=== PATIENT | female | born 1980 | race American Indian/Alaskan Native ===

== ENCOUNTER 2017-05-30 09:09 | Emergency (ER) | payer SELFPAY ==
[2017-05-30 09:51] LABS: Basophils % (Auto) 0.6 % (0.0-1.8); Eosinophils % (Auto) 1.9 % (0.0-4.3); Hematocrit 37.7 % (30.3-42.9); Hemoglobin 12.3 gm/dl (10.1-14.3); Mean Corpuscular HGB Conc 33 % (30-34); Mean Corpuscular Volume 79 fl (79-97); Platelet Count 355 K/mm3 (140-440); Red Cell Distribution Width 13.9 % (13.2-15.2); White Blood Count 5.6 K/mm3 (4.5-11.0)
[2017-05-30 09:55] LABS: Mean Corpuscular Hemoglobin 26 pg (28-32)
[2017-05-30] MEDS ORDERED: CATAPRES PO ONE (09:57)
[2017-05-30 10:10] LABS: Alanine Aminotransferase 5 units/L (7-56); Albumin 4.2 g/dL (3.9-5); Albumin/Globulin Ratio 1.3 %; Alkaline Phosphatase 91 units/L (35-129); Anion Gap 18 mmol/L; BUN/Creatinine Ratio 12.85; Blood Urea Nitrogen 9 mg/dL (7-17); Calcium 9.3 mg/dL (8.4-10.2); Carbon Dioxide 25 mmol/L (22-30); Glucose 198 mg/dL (65-100); Potassium 3.8 mmol/L (3.6-5.0); Sodium 137 mmol/L (137-145); Total Protein 7.4 g/dL (6.3-8.2)
[2017-05-30 10:25] LABS: Bilirubin,Urine NEG (Negative); Blood,Urine MOD (Negative); Ketones,Urine 20 mg/dL (Negative); Leukocyte Esterase,Urine MOD (Negative); Mucus,Urine 3+ /HPF; Nitrite,Urine POS (Negative); Urobilinogen,Urine < 2.0 mg/dL (<2.0)
[2017-05-30 10:26] LABS: Protein,Urine >500 mg/dL (Negative); WBC,Urine > 182.0 /HPF (0.0-6.0)
[2017-05-30] MEDS ORDERED: MOTRIN PO ONE (17:06)
[2017-05-30] MEDS ORDERED: MORPHINE IM ONE (17:06)
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
[2017-05-30 19:41] VITALS: BP 148/90
== END 2017-05-30 17:40 | disposition home or self-care (01) ==
LOC: ED 09:09
DX: E11.9 Type 2 diabetes mellitus without complications (principal); R03.0 Elevated blood-pressure reading, without diagnosis of hypertension; F17.200 Nicotine dependence, unspecified, uncomplicated
CPT/HCPCS: 36415; 80053; 81001; 81025; 82962; 85025; 93005; 93010; 96372; 99283; J2270

== ENCOUNTER 2017-12-29 15:07 | Emergency (ER) | payer SELFPAY ==
[2017-12-29 16:38] LABS: Bacteria,Urine 2+ /HPF (Negative); Bilirubin,Urine NEG (Negative); Blood,Urine MOD (Negative); Color,Urine Yellow (Yellow); Mucus,Urine FEW /HPF; Nitrite,Urine POS (Negative); Protein,Urine <15 mg/dL mg/dL (Negative); Urobilinogen,Urine < 2.0 mg/dL (<2.0)
[2017-12-29 16:40] LABS: HCG Qualitative,Urine Negative (Negative)
[2017-12-29] MEDS ORDERED: XYLOCAINE 1% MPF 5 mL INFILTRATI ONE (17:44)
[2017-12-29] MEDS ORDERED: ROCEPHIN IM ONE (17:44)
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
[2017-12-29 18:32] VITALS: BP 146/84
[2017-12-29] MEDS ORDERED: DIFLUCAN PO ONE (19:00)
== END 2017-12-29 18:31 | disposition home or self-care (01) ==
LOC: ED 15:07
DX: N39.0 Urinary tract infection, site not specified (principal); E11.9 Type 2 diabetes mellitus without complications; F17.200 Nicotine dependence, unspecified, uncomplicated; Z91.19 Patient's noncompliance with other medical treatment and regimen
CPT/HCPCS: 81001; 81025; 96372; 99283; J0696

== ENCOUNTER 2018-01-30 01:39 | Inpatient (IN) | payer SELFPAY ==
[2018-01-30 02:43] LABS: Basophils % (Auto) 0.1 % (0.0-1.8); Hematocrit 41.1 % (30.3-42.9); Hemoglobin 13.5 gm/dl (10.1-14.3); Lymphocytes % (Auto) 7.1 % (13.4-35.0); Mean Corpuscular HGB Conc 33 % (30-34); Mean Corpuscular Volume 79 fl (79-97); Monocytes # (Auto) 0.4 K/mm3 (0.0-0.8); Platelet Count 338 K/mm3 (140-440); Red Blood Count 5.21 M/mm3 (3.65-5.03); Red Cell Distribution Width 13.8 % (13.2-15.2)
[2018-01-30 02:51] LABS: Mean Corpuscular Hemoglobin 26 pg (28-32)
[2018-01-30 03:36] LABS: Alanine Aminotransferase 15 units/L (7-56); Albumin 4.6 g/dL (3.9-5); BUN/Creatinine Ratio 23; Blood Urea Nitrogen 21 mg/dL (7-17); Calcium 9.8 mg/dL (8.4-10.2); Hemolysis Index 1
[2018-01-30] MEDS ORDERED: D50W (25GM) Syringe IV PRN ×2 (09:35→23:29)
[2018-01-30] MEDS ORDERED: NACL 0.9% 1000 ML 1,000 ML IV ONE ×2 (09:35→09:36)
[2018-01-30] MEDS ORDERED: ZOFRAN IV ONE (09:39)
--- NOTE | 2018-01-30 09:42 | Emergency Department Report ---
ED Abdominal Pain HPI - General Chief Complaint: Abdominal Pain Stated Complaint: ABD APIN; N/V Time Seen by Provider: 01/30/18 09:29 Source: patient Mode of arrival: Ambulatory Limitations: No Limitations - History of Present Illness Initial Comments: Patient is 37 years old female history of diabetes on metformin. Patient presented to the ER with nausea, vomiting and diarrhea for the last 3 days. Patient stated that she is unable to keep anything down. She also complaining OF abdominal pain, diffuse crampy in nature. Patient denied any fever, chest pain or shortness of breath or cough. She also denied any urinary symptoms. MD Complaint: abdominal pain Location: diffuse Radiation: none Severity: moderate Severity scale (0 -10): 6 Consistency: constant Associated Symptoms: nausea, vomiting, diarrhea - Related Data Home Medications Medication Instructions Recorded Confirmed Last Taken [place]-3 Fatty Acids/Fish Oil [Fish 1 each PO DAILY 01/30/18 01/30/18 01/28/18 Oil] metFORMIN [Glucophage] 500 mg PO BID 01/30/18 01/30/18 01/28/18 Allergies Allergy/AdvReac Type Severity Reaction Status Date / Time No Known Allergies Allergy Verified 04/24/15 10:13 ED Review of Systems ROS: Stated complaint: ABD APIN; N/V Other details as noted in HPI Comment: All other systems reviewed and negative Constitutional: denies: chills Respiratory: denies: cough, shortness of breath, SOB with exertion Cardiovascular: denies: chest pain, palpitations, dyspnea on exertion Gastrointestinal: abdominal pain, nausea, vomiting, diarrhea. denies: constipation, hematemesis, melena, hematochezia Neurological: denies: headache, weakness, numbness, paresthesias, confusion, abnormal gait ED Past Medical Hx - Past Medical History Previous Medical History?: Yes Hx Diabetes: Yes (type 2) Additional medical history: [facility] 05-28-2017 - Surgical History Past Surgical History?: No - Social History Smoking Status: Current Every Day Smoker Substance Use Type: None - Medications Home Medications: Home Medications Medication Instructions Recorded Confirmed Last Taken Type [place]-3 Fatty Acids/Fish Oil [Fish 1 each PO DAILY 01/30/18 01/30/18 01/28/18 History Oil] metFORMIN [Glucophage] 500 mg PO BID 01/30/18 01/30/18 01/28/18 History ED Physical Exam - General Limitations: No Limitations General appearance: alert, in no apparent distress - Head Head exam: Present: atraumatic, normocephalic - Eye Eye exam: Present: normal appearance, PERRL - ENT ENT exam: Present: mucous membranes dry - Neck Neck exam: Present: normal inspection, full ROM. Absent: tenderness, meningismus, lymphadenopathy - Respiratory Respiratory exam: Present: normal lung sounds bilaterally. Absent: respiratory distress, wheezes, rales, rhonchi, stridor, chest wall tenderness, accessory muscle use, decreased breath sounds, prolonged expiratory - Cardiovascular Cardiovascular Exam: Present: tachycardia. Absent: systolic murmur, diastolic murmur - GI/Abdominal GI/Abdominal exam: Present: soft, tenderness (diffuse tenderness), normal bowel sounds. Absent: distended, guarding, rebound, rigid, organomegaly, mass, bruit , pulsatile mass, hernia - Extremities Exam Extremities exam: Present: normal inspection, full ROM, normal capillary refill - Back Exam Back exam: Present: normal inspection, full ROM. Absent: CVA tenderness (R), CVA tenderness (L) - Neurological Exam Neurological exam: Present: alert, oriented X3, CN II-XII intact, normal gait - Skin Skin exam: Present: warm, dry, intact ED Course Vital Signs 01/30/18 01/30/18 01/30/18 02:10 09:50 11:00 Temperature 98.5 F 97.6 F Pulse Rate 114 H 123 H Respiratory 18 26 H 23 Rate Blood Pressure 165/109 Blood Pressure 189/112 [Right] O2 Sat by Pulse 100 100 Oximetry - Reevaluation(s) Reevaluation #1: 01/30/18 12:47 Patient stated that she is feeling better. I discussed patient with Dr. Villasenor, he agreed to admit to his service. ED Medical Decision Making - Lab Data Result diagrams: 01/30/18 02:16 01/30/18 09:44 - Radiology Data Radiology results: report reviewed Referring Physician: HAYLEY CUEVAS Patient Name: FELIX FISHER Date of : 1980 Sex: Female Report Date: 2018-01-30 Report Status: Finalized Findings [facility] [address] [place] [address] Cat Scan Report Signed Patient: FELIX FISHER MR#: [id number] : 1980 Acct:[id number] Age/Sex: 37 / F ADM Date: 01/30/18 Loc: ED Attending Dr: Ordering Physician: HAYLEY CUEVAS Date of Service: 01/30/18 Procedure(s): CT abdomen pelvis w con Accession Number(s): [id number] cc: HAYLEY CUEVAS FINAL REPORT EXAM: CT ABDOMEN PELVIS W CON HISTORY: abdominal pain TECHNIQUE: CT examination of the ABDOMEN after IV contrast CT examination of the PELVIS after IV contrast PRIORS: 04/16/2015 FINDINGS: Normal-appearing liver, gallbladder, adrenals, pancreas, and spleen. Intact normal caliber abdominal aorta with moderate calcified and noncalcified atherosclerotic plaque. Normal caliber IVC. Normal-appearing kidneys and visible portion of the ureters. No retroperitoneal adenopathy. No evidence of mesenteric mass. Intact anterior abdominal wall. There is nonspecific circumferential thickening of the distal esophageal wall. Normal-appearing stomach and duodenum. No small bowel distention in the abdomen and pelvis. No definite pelvic free fluid. Normal-appearing urinary bladder and uterus. Normal-appearing rectum. No gross ascites, free air, or colonic distention. Normal-appearing cecum, terminal ileum, and air-filled appendix. Nonspecific hypodense adnexa is suggestive of cystic change bilaterally. This may represent cysts within enlarged ovaries. Slight sigmoid diverticulosis without evidence of acute inflammation. IMPRESSION: Nonspecific circumferential thickening of the distal esophageal wall appears new from prior exam. This may reflect edema, inflammation, infection, or be secondary to reflux disease. Differential includes neoplastic infiltration Bilateral hypodense adnexa may reflect cystic change within enlarged ovaries. Slight sigmoid diverticulosis Transcribed By: VINI Dictated By: MICHELLE BLAND MD Electronically Authenticated By: MICHELLE BLAND MD Signed Date/Time: 01/30/181221 DD/ 21 TD/TT: 01/30/181221 Critical Care Time: Yes Critical care time in (mins) excluding proc time.: 30 Critical care attestation.: If time is entered above; I have spent that time in minutes in the direct care of this critically ill patient, excluding procedure time. ED Disposition Clinical Impression: DKA (diabetic ketoacidoses), Abdominal pain Disposition: 09 OP ADMIT IP TO THIS HOSP Is pt being admited?: Yes Condition: Stable Instructions: Abdominal Pain (ED), Diabetic Ketoacidosis (ED) Referrals: SUDHA TURPIN MD [Primary Care Provider] - 3-5 Days
[2018-01-30] MEDS ORDERED: LOPRESSOR IV ONE ×2 (09:56→13:54)
[2018-01-30 10:15] LABS: Bilirubin,Urine NEG (Negative); Blood,Urine MOD (Negative); Color,Urine Yellow (Yellow); Hyaline Casts,Urine 4 /LPF; Urobilinogen,Urine < 2.0 mg/dL (<2.0)
[2018-01-30 10:22] LABS: BUN/Creatinine Ratio 24; Blood Urea Nitrogen 24 mg/dL (7-17); Hemolysis Index 32
[2018-01-30] MEDS ORDERED: MORPHINE IV ONE (10:22)
[2018-01-30] MEDS: HumuLIN R 100 UNITS in NACL 0.9% 99 ML IV SCH ×2 (10:42→14:30)
[2018-01-30] MEDS: ZOSYN/NS 3.375GM/50ML 3.375 GM/50 ML BAG IV SCH ×2 (12:21→19:55)
--- NOTE | 2018-01-30 12:28 | Cat Scan Report ---
FINAL REPORT EXAM: CT ABDOMEN PELVIS W CON HISTORY: abdominal pain TECHNIQUE: CT examination of the ABDOMEN after IV contrast CT examination of the PELVIS after IV contrast PRIORS: 04/16/2015 FINDINGS: Normal-appearing liver, gallbladder, adrenals, pancreas, and spleen. Intact normal caliber abdominal aorta with moderate calcified and noncalcified atherosclerotic plaque. Normal caliber IVC. Normal-appearing kidneys and visible portion of the ureters. No retroperitoneal adenopathy. No evidence of mesenteric mass. Intact anterior abdominal wall. There is nonspecific circumferential thickening of the distal esophageal wall. Normal-appearing stomach and duodenum. No small bowel distention in the abdomen and pelvis. No definite pelvic free fluid. Normal-appearing urinary bladder and uterus. Normal-appearing rectum. No gross ascites, free air, or colonic distention. Normal-appearing cecum, terminal ileum, and air-filled appendix. Nonspecific hypodense adnexa is suggestive of cystic change bilaterally. This may represent cysts within enlarged ovaries. Slight sigmoid diverticulosis without evidence of acute inflammation. IMPRESSION: Nonspecific circumferential thickening of the distal esophageal wall appears new from prior exam. This may reflect edema, inflammation, infection, or be secondary to reflux disease. Differential includes neoplastic infiltration Bilateral hypodense adnexa may reflect cystic change within enlarged ovaries. Slight sigmoid diverticulosis
[2018-01-30 12:59] LABS: BUN/Creatinine Ratio TNR; Blood Urea Nitrogen TNR mg/dL (7-17); Calcium TNR mg/dL (8.4-10.2)
[2018-01-30 13:00] LABS: Hemolysis Index TNR
[2018-01-30 13:58] LABS: BUN/Creatinine Ratio 23; Blood Urea Nitrogen 21 mg/dL (7-17); Calcium 8.6 mg/dL (8.4-10.2); Hemolysis Index 2
--- NOTE | 2018-01-30 15:26 | Consultation ---
History of Present Illness Consult date: 01/30/18 Reason for consult: other (uncontrolled blood sugar, acidosis) History of present illness: Called to evaluate a 37-year-old -[place] female, with a history of smoking, diabetes on insulin and metformin. The patient presents to the ED with history of nausea vomiting and diarrhea episodes for the last 3 days. She also complains of diffuse abdominal pain. She denies any fever or chills. She denies any sick contacts. Reportedly, her blood sugar has been under control lately. Denies any drug use or medication abuse. She denies any cough chest congestion reading problems or chest pain. Denies prior history of problems. Called to evaluate for possible CCU admission. Pending also hospitalist evaluation. Recent laboratories are as follows: Laboratory Tests 01/30/18 01/30/18 01/30/18 02:16 02:16 12:09 WBC 14.7 H Hgb 13.5 Hct 41.1 Sodium 140 Potassium 4.3 Carbon Dioxide 20 L Anion Gap 31 TNR Creatinine 0.9 Estimated GFR > 60 Glucose 383 H Lactic Acid Calcium TNR 01/30/18 01/30/18 13:27 13:27 WBC Hgb Hct Sodium 141 Potassium 3.7 Carbon Dioxide 22 Anion Gap 20 Creatinine Estimated GFR Glucose 201 H Lactic Acid 2.40 H* Calcium Hemodynamically the patient is to be stable. She is not in any distress and she is not aware of any pressor medications. Not on insulin drip at this time. Past History Past Medical History: diabetes Social history: smoking Medications and Allergies Allergies Allergy/AdvReac Type Severity Reaction Status Date / Time No Known Allergies Allergy Verified 04/24/15 10:13 Home Medications Medication Instructions Recorded Confirmed Last Taken Type [place]-3 Fatty Acids/Fish Oil [Fish 1 each PO DAILY 01/30/18 01/30/18 01/28/18 History Oil] metFORMIN [Glucophage] 500 mg PO BID 01/30/18 01/30/18 01/28/18 History Active Meds: Active Medications Dextrose (D50w (25gm) Syringe) 0 ml IV PRN PRN PRN Reason: Hypoglycemia Insulin Human Regular 100 (units/ Sodium Chloride) 100 mls @ 1 mls/hr IV TITR DENI; Protocol Last Titration: 01/30/18 13:11 Dose: 3 units/hr, 3 mls/hr Piperacillin Sod/Tazobactam Sod (Zosyn/Ns 3.375gm/50ml) 3.375 gm in 50 mls @ 100 mls/hr IV Q6HR DENI Last Admin: 01/30/18 12:21 Dose: 100 mls/hr Review of Systems Constitutional: anorexia, fatigue, weakness, poor appetite, no fever, no chills , no sweats, no night sweats Cardiovascular: no chest pain, no orthopnea, no palpitations, no rapid/ irregular heart beat, no edema, no lightheadedness, no shortness of breath, no dyspnea on exertion Respiratory: no cough, no cough with sputum, no excessive sputum, no hemoptysis , no congestion, no wheezing Gastrointestinal: abdominal pain, nausea, vomiting, diarrhea, loss of appetite, no hematemesis, no coffee ground emesis, no melena, no hematochezia Genitourinary Female: no pelvic pain, no flank pain Musculoskeletal: no neck stiffness, no neck pain Integumentary: no rash, no pruritis, no redness Neurological: no head injury, no transient paralysis, no paralysis, no weakness , no parathesias Endocrine: polydipsia Hematologic/Lymphatic: no easy bruising, no easy bleeding, no lymphadenopathy, no lymphedema, no thrombophilia Allergic/Immunologic: no wheezing Physical Examination Vital signs: Vital Signs Temp Pulse Resp BP Pulse Ox 98.5 F 114 H 18 165/109 100 01/30/18 02:10 01/30/18 02:10 01/30/18 02:10 01/30/18 02:10 01/30/18 02:10 General appearance: no acute distress, alert Eyes: non-icteric ENT: oropharynx dry Neck: supple, no JVD Ascultation: Bilateral: clear Percussion: Bilateral: not dull Cardiovascular: regular rate and rhythm Gastrointestinal: normoactive bowel sounds, non-tender, non-distended, other ( no guarding) Integumentary: normal Extremities: no cyanosis, no edema normal mental status, non-focal exam, CN II-XII normal, motor strength normal and anxious Results - Laboratory Findings CBC and BMP: 01/30/18 02:16 01/30/18 13:27 Abnormal lab findings: Abnormal Labs 01/30/18 01/30/18 01/30/18 02:16 02:16 02:16 WBC 14.7 H RBC 5.21 H MCH 26 L Lymph % (Auto) 7.1 L Lymph # 1.0 L Seg Neutrophils % 89.8 H Seg Neutrophils # 13.2 H Chloride 93.4 L Carbon Dioxide 20 L BUN 21 H Glucose 383 H POC Glucose 343 H Lactic Acid Phosphorus Total Protein 8.4 H 01/30/18 01/30/18 01/30/18 09:06 09:44 09:44 WBC RBC MCH Lymph % (Auto) Lymph # Seg Neutrophils % Seg Neutrophils # Chloride 91.7 L Carbon Dioxide 20 L BUN 24 H Glucose 427 H POC Glucose 373 H Lactic Acid Phosphorus 4.60 H Total Protein 01/30/18 01/30/18 01/30/18 11:31 12:23 13:01 WBC RBC MCH Lymph % (Auto) Lymph # Seg Neutrophils % Seg Neutrophils # Chloride Carbon Dioxide BUN Glucose POC Glucose 251 H 209 H Lactic Acid 3.30 H* Phosphorus Total Protein 01/30/18 01/30/18 13:27 13:27 WBC RBC MCH Lymph % (Auto) Lymph # Seg Neutrophils % Seg Neutrophils # Chloride Carbon Dioxide BUN 21 H Glucose 201 H POC Glucose Lactic Acid 2.40 H* Phosphorus Total Protein - Diagnostic Findings CT scan - chest: report reviewed Assessment and Plan Uncontrolled blood sugar. Lactic acidosis. Could be secondary to dehydration and poor blood sugar control. However, symptoms are also consistent with adverse reaction to metformin Distal esophageal enlargement. See CT report for differential diagnosis. Further evaluation by GI. Recommendations Continue fluid replacement. Monitor BP and intake and output Serum blood sugar monitoring. Now in a more normal range. I will avoid metformin use for the moment. Use sliding scale blood sugar monitoring, short-acting insulin and or drip if needed If no need for insulin drip at this point, blood sugar and AG within normal range, patient might be candidate to go to the floor to continue hydration, blood sugar monitoring Repeat serum lactate monitor during next 24 hours,until hydration completed Measure diarrhea output and workup as needed Blood sugar follow-up, disposition by Hospital medicine.
[2018-01-30 16:25] LABS: BUN/Creatinine Ratio 26; Blood Urea Nitrogen 21 mg/dL (7-17); Calcium 8.5 mg/dL (8.4-10.2); Hemolysis Index 11
--- NOTE | 2018-01-30 17:03 | History and Physical Report ---
History of Present Illness Date of examination: 01/30/18 Date of admission: 01/30/18 12:53 Chief complaint: CC N/v for 3 days History of present illness: History of Present Illness Patient is 37 years old female with history of diabetes on metformin.Diabetes for about 3 years.Not Juvenile onset. Patient presented to the ER with nausea, vomiting and diarrhea for the last 3 days. Patient stated that she is unable to keep anything down. She is also complaining of abdominal pain, diffuse crampy in nature. Patient denied any fever, chest pain or shortness of breath or cough. She also denied any urinary symptoms.Never on Insulin till now.No Sob /Fever/chills Past Medical History Previous Medical History?: Yes Hx Diabetes: Yes (type 2) Additional medical history: [facility] 05-28-2017 Surgical History Past Surgical History?: No - Social History Smoking Status: Current Every Day Smoker Substance Use Type: None Family history htn - Medications Home Medications: Home Medications Medication Instructions Recorded Confirmed Last Taken Type [place]-3 Fatty Acids/Fish Oil [Fish 1 each PO DAILY 01/30/18 01/30/18 01/28/18 History Oil] metFORMIN [Glucophage] 500 mg PO BID 01/30/18 01/30/18 01/28/18 History Past History Past Medical History: diabetes Social history: smoking Medications and Allergies Allergies Allergy/AdvReac Type Severity Reaction Status Date / Time No Known Allergies Allergy Verified 04/24/15 10:13 Home Medications Medication Instructions Recorded Confirmed Last Taken Type [place]-3 Fatty Acids/Fish Oil [Fish 1 each PO DAILY 01/30/18 01/30/18 01/28/18 History Oil] metFORMIN [Glucophage] 500 mg PO BID 01/30/18 01/30/18 01/28/18 History Active Meds: Active Medications Dextrose (D50w (25gm) Syringe) 0 ml IV PRN PRN PRN Reason: Hypoglycemia Insulin Human Regular 100 (units/ Sodium Chloride) 100 mls @ 1 mls/hr IV TITR DENI; Protocol Last Titration: 01/30/18 16:26 Dose: 3 units/hr, 3 mls/hr Piperacillin Sod/Tazobactam Sod (Zosyn/Ns 3.375gm/50ml) 3.375 gm in 50 mls @ 100 mls/hr IV Q6HR DENI Last Admin: 01/30/18 12:21 Dose: 100 mls/hr Review of Systems All systems: negative Constitutional: weight loss, no weight gain, no fever, no chills, no sweats, no night sweats Ears, nose, mouth and throat: no hoarseness, no sore throat Cardiovascular: no chest pain, no orthopnea, no palpitations, no rapid/ irregular heart beat Respiratory: no cough, no cough with sputum, no excessive sputum, no hemoptysis Gastrointestinal: abdominal pain, nausea, vomiting, diarrhea Genitourinary Female: no dysuria, no urinary frequency, no urgency, no stress incontinence Menstruation: currently menstrual Rectal: no pain Musculoskeletal: no neck stiffness, no neck pain, no shooting arm pain, no arm numbness/tingling, no low back pain, no shooting leg pain Integumentary: no rash, no pruritis, no redness, no sores Neurological: no head injury, no transient paralysis, no seizures, no syncope Psychiatric: no anxiety, no memory loss, no change in sleep habits, no sleep disturbances Endocrine: no cold intolerance, no heat intolerance, no polyphagia, no excessive thirst, no polydipsia Hematologic/Lymphatic: no easy bruising, no easy bleeding Allergic/Immunologic: no urticaria, no allergic rhinitis, no wheezing Exam - Constitutional Vitals: Temp Pulse Resp BP Pulse Ox 97.6 F 94 H 10 L 160/95 100 01/30/18 09:50 01/30/18 13:46 01/30/18 13:46 01/30/18 16:16 01/30/18 16:16 General appearance: Present: no acute distress, well-nourished - EENT Eyes: Present: PERRL ENT: hearing intact, clear oral mucosa - Neck Neck: Present: supple, normal ROM - Respiratory Respiratory effort: normal Respiratory: bilateral: CTA - Cardiovascular Heart rate: 76 Rhythm: regular Heart Sounds: Present: S1 & S2. Absent: rub, click - Extremities Extremities: no ischemia, pulses intact, pulses symmetrical, No edema Peripheral Pulses: within normal limits - Abdominal General gastrointestinal: Present: soft, non-tender, non-distended, normal bowel sounds Female genitourinary: Present: normal - Rectal Rectal Exam: deferred - Integumentary Integumentary: Present: clear, warm, dry - Musculoskeletal Musculoskeletal: gait normal, strength equal bilaterally - Psychiatric Psychiatric: appropriate mood/affect, intact judgment & insight - Neurologic Neurologic: CNII-XII intact, moves all extremities - Allied Health Allied health notes reviewed: nursing, case management Results - Labs CBC & Chem 7: 01/30/18 02:16 01/31/18 03:31 Labs: Laboratory Last Values WBC 14.7 K/mm3 (4.5-11.0) H 01/30/18 02:16 RBC 5.21 M/mm3 (3.65-5.03) H 01/30/18 02:16 Hgb 13.5 gm/dl (10.1-14.3) 01/30/18 02:16 Hct 41.1 % (30.3-42.9) 01/30/18 02:16 MCV 79 fl (79-97) 01/30/18 02:16 MCH 26 pg (28-32) L 01/30/18 02:16 MCHC 33 % (30-34) 01/30/18 02:16 RDW 13.8 % (13.2-15.2) 01/30/18 02:16 Plt Count 338 K/mm3 (140-440) 01/30/18 02:16 Lymph % (Auto) 7.1 % (13.4-35.0) L 01/30/18 02:16 [place] % (Auto) 3.0 % (0.0-7.3) 01/30/18 02:16 Eos % (Auto) 0.0 % (0.0-4.3) 01/30/18 02:16 Baso % (Auto) 0.1 % (0.0-1.8) 01/30/18 02:16 Lymph # 1.0 K/mm3 (1.2-5.4) L 01/30/18 02:16 [place] # 0.4 K/mm3 (0.0-0.8) 01/30/18 02:16 Eos # 0.0 K/mm3 (0.0-0.4) 01/30/18 02:16 Baso # 0.0 K/mm3 (0.0-0.1) 01/30/18 02:16 Seg Neutrophils % 89.8 % (40.0-70.0) H 01/30/18 02:16 Seg Neutrophils # 13.2 K/mm3 (1.8-7.7) H 01/30/18 02:16 Sodium 141 mmol/L (137-145) 01/30/18 15:34 Potassium 4.4 mmol/L (3.6-5.0) 01/30/18 15:34 Chloride 101.7 mmol/L (98-107) 01/30/18 15:34 Carbon Dioxide 22 mmol/L (22-30) 01/30/18 15:34 Anion Gap 22 mmol/L 01/30/18 15:34 BUN 21 mg/dL (7-17) H 01/30/18 15:34 Creatinine 0.8 mg/dL (0.7-1.2) 01/30/18 15:34 Estimated GFR > 60 ml/min 01/30/18 15:34 BUN/Creatinine Ratio 26 % 01/30/18 15:34 Glucose 215 mg/dL (65-100) H 01/30/18 15:34 POC Glucose 205 (70-105) H 01/30/18 16:11 Lactic Acid 1.40 mmol/L (0.7-2.0) 01/30/18 15:34 Calcium 8.5 mg/dL (8.4-10.2) 01/30/18 15:34 Phosphorus 4.60 mg/dL (2.5-4.5) H 01/30/18 09:44 Magnesium 2.00 mg/dL (1.7-2.3) 01/30/18 09:44 Total Bilirubin 0.50 mg/dL (0.1-1.2) 01/30/18 02:16 AST 18 units/L (5-40) 01/30/18 02:16 ALT 15 units/L (7-56) 01/30/18 02:16 Alkaline Phosphatase 116 units/L (35-129) 01/30/18 02:16 Total Protein 8.4 g/dL (6.3-8.2) H 01/30/18 02:16 Albumin 4.6 g/dL (3.9-5) 01/30/18 02:16 Albumin/Globulin Ratio 1.2 % 01/30/18 02:16 HCG, Qual Negative (Negative) 01/30/18 09:44 Urine Color Yellow (Yellow) 01/30/18 09:45 Urine Turbidity Clear (Clear) 01/30/18 09:45 Urine pH 5.0 (5.0-7.0) 01/30/18 09:45 Ur Specific [place] 1.029 (1.003-1.030) 01/30/18 09:45 Urine Protein 100 mg/dl mg/dL (Negative) 01/30/18 09:45 Urine Glucose (UA) >=500 mg/dL (Negative) 01/30/18 09:45 Urine Ketones 80 mg/dL (Negative) 01/30/18 09:45 Urine Blood Mod (Negative) 01/30/18 09:45 Urine Nitrite Neg (Negative) 01/30/18 09:45 Urine Bilirubin Neg (Negative) 01/30/18 09:45 Urine Urobilinogen < 2.0 mg/dL (<2.0) 01/30/18 09:45 Ur Leukocyte Esterase Neg (Negative) 01/30/18 09:45 Urine WBC (Auto) 1.0 /HPF (0.0-6.0) 01/30/18 09:45 Urine RBC (Auto) 8.0 /HPF (0.0-6.0) 01/30/18 09:45 Hyaline Casts 4 /LPF 01/30/18 09:45 Assessment and Plan Assessment and plan: The high probability of a clinically significant, sudden or life threatening deterioration of the [Pulmonary, cadiac, renal] system(s) required my full and direct attention, intervention and personal management. The aggregate critical care time was [35] minutes. This time is in addition to time spent performing reported procedures but includes the following: [x] Data Review and interpretation [x] Patient assessment and monitoring of vital signs [x] Documentation [x] Medication orders and management Advance Directives: Yes (Full code) VTE prophylaxis?: Chemical Plan of care discussed with patient/family: Yes - Patient Problems (1) DKA (diabetic ketoacidoses) Current Visit: Yes Status: Acute Qualifiers: Diabetes mellitus type: type 2 Plan to address problem: Mild DKA DKA protocol Patient to be trained to use insulin and maybe discharge on Insulin Will defer to Hospitalist team Check A1c (2) DVT prophylaxis Current Visit: Yes Status: Acute Plan to address problem: On Heparin
[2018-01-30 18:24] LABS: BUN/Creatinine Ratio 24; Blood Urea Nitrogen 19 mg/dL (7-17); Calcium 8.2 mg/dL (8.4-10.2); Hemolysis Index 21
[2018-01-30] MEDS ORDERED: NACL 0.9% 1000 ML 1,000 ML ONE (18:43)
[2018-01-30] MEDS ORDERED: DILAUDID IV PRN (23:26)
[2018-01-30] MEDS ORDERED: PERCOCET 5/325 PO PRN (23:26)
[2018-01-30] MEDS ORDERED: SODIUM CHLORIDE FLUSH SYRINGE 10 ML IV PRN (23:26)
[2018-01-30] MEDS ORDERED: TYLENOL PO PRN (23:26)
[2018-01-30] MEDS ORDERED: HumuLIN R 100 UNITS in NACL 0.9% 99 ML IV SCH (23:45)
[2018-01-31] MEDS: KCL 10MEQ/100ML 10 MEQ/100 ML BAG IV SCH ×9 (00:27→04:49)
[2018-01-31] MEDS: D5W/0.45% NACL/KCL 20 MEQ 20 MEQ/1,000 ML BAG IV SCH ×2 (00:32→17:47)
[2018-01-31 00:59] LABS: BUN/Creatinine Ratio 24; Blood Urea Nitrogen 17 mg/dL (7-17); Calcium 7.7 mg/dL (8.4-10.2); Hemolysis Index 1
[2018-01-31] MEDS: ZOSYN/NS 3.375GM/50ML 3.375 GM/50 ML BAG IV SCH ×5 (02:48→23:15)
[2018-01-31] MEDS: HumuLIN R 100 UNITS in NACL 0.9% 99 ML IV SCH (02:49)
[2018-01-31 04:02] LABS: BUN/Creatinine Ratio 23; Blood Urea Nitrogen 16 mg/dL (7-17); Calcium 7.7 mg/dL (8.4-10.2); Hemolysis Index 4
[2018-01-31 06:31] LABS: BUN/Creatinine Ratio 21; Blood Urea Nitrogen 15 mg/dL (7-17); Hemolysis Index 0
[2018-01-31 07:58] LABS: BUN/Creatinine Ratio 19; Blood Urea Nitrogen 15 mg/dL (7-17); Hemolysis Index 4
--- NOTE | 2018-01-31 09:33 | Progress Note ---
Assessment and Plan Assessment and plan: Patient is 37 years old female with history of diabetes on metformin. Diabetes for about 3 years. Not Juvenile onset. Patient presented to the ER with nausea , vomiting and diarrhea for the last 3 days. Patient stated that she is unable to keep anything down. She is also complaining of abdominal pain, diffuse crampy in nature. Patient denied any fever, chest pain or shortness of breath or cough. She also denied any urinary symptoms.Never on Insulin till now. No Sob/Fever/chills (1) DKA (diabetic ketoacidoses) Corrected with DKA protocal Downgrade to medsurge COUNSELLING PROVIDED Appropriate diet and insulin regimen discussed Follow ups discussed Anticipate discharge in AM (2) DM with hyperglycemia 70/30 ON DISCHARGE (3) TOBACCO USE DISORDER Extensive Counselling provided 15 MINS, patient verablized understanding (4)HTN Hydralazine PRN (5)Eosphagitis with Reflux PPI (6)DVT prophylaxis On Heparin History Interval history: The patient admitted with DKA. Patient seen and examined in no acute distress at this time. Reports improvement in symptomatology. Denies any nausea vomiting diarrhea denies any headaches. Hospitalist Physical - Physical exam Narrative exam: VITAL SIGNS: Reviewed. GENERAL: The patient appeared well nourished and normally developed. Vital signs as documented. HEAD: No signs of head trauma. EYES: Pupils are equal. Extraocular motions intact. EARS: Hearing grossly intact. MOUTH: Oropharynx is normal. NECK: No adenopathy, no JVD. CHEST: Chest with mild wheezing breath sounds bilaterally. No rales, or rhonchi. CARDIAC: Regular rate and rhythm. S1 and S2, without murmurs, gallops, or rubs. VASCULAR: No Edema. Peripheral pulses normal and equal in all extremities. ABDOMEN: Soft, without detectable tenderness. No sign of distention. No rebound or guarding, and no masses palpated. Bowel Sounds normal. MUSCULOSKELETAL: Good range of motion of all major joints. Extremities without clubbing, cyanosis or edema. NEUROLOGIC EXAM: Alert and oriented x 3. No focal sensory or strength deficits. Speech normal. Follows commands. PSYCHIATRIC: Mood normal. SKIN: No rash or lesions. - Constitutional Vitals: Temp Pulse Resp BP Pulse Ox 98.4 F 90 18 122/84 99 01/31/18 04:36 01/31/18 04:36 01/31/18 04:36 01/31/18 08:11 01/31/18 08:11 General appearance: Present: no acute distress, well-nourished Results - Labs CBC & Chem 7: 01/30/18 02:16 01/31/18 23:13 Labs: Laboratory Last Values WBC 14.7 K/mm3 (4.5-11.0) H 01/30/18 02:16 RBC 5.21 M/mm3 (3.65-5.03) H 01/30/18 02:16 Hgb 13.5 gm/dl (10.1-14.3) 01/30/18 02:16 Hct 41.1 % (30.3-42.9) 01/30/18 02:16 MCV 79 fl (79-97) 01/30/18 02:16 MCH 26 pg (28-32) L 01/30/18 02:16 MCHC 33 % (30-34) 01/30/18 02:16 RDW 13.8 % (13.2-15.2) 01/30/18 02:16 Plt Count 338 K/mm3 (140-440) 01/30/18 02:16 Lymph % (Auto) 7.1 % (13.4-35.0) L 01/30/18 02:16 [place] % (Auto) 3.0 % (0.0-7.3) 01/30/18 02:16 Eos % (Auto) 0.0 % (0.0-4.3) 01/30/18 02:16 Baso % (Auto) 0.1 % (0.0-1.8) 01/30/18 02:16 Lymph # 1.0 K/mm3 (1.2-5.4) L 01/30/18 02:16 [place] # 0.4 K/mm3 (0.0-0.8) 01/30/18 02:16 Eos # 0.0 K/mm3 (0.0-0.4) 01/30/18 02:16 Baso # 0.0 K/mm3 (0.0-0.1) 01/30/18 02:16 Seg Neutrophils % 89.8 % (40.0-70.0) H 01/30/18 02:16 Seg Neutrophils # 13.2 K/mm3 (1.8-7.7) H 01/30/18 02:16 Sodium 140 mmol/L (137-145) 01/31/18 07:31 Potassium 3.6 mmol/L (3.6-5.0) 01/31/18 07:31 Chloride 101.5 mmol/L (98-107) 01/31/18 07:31 Carbon Dioxide 25 mmol/L (22-30) 01/31/18 07:31 Anion Gap 17 mmol/L 01/31/18 07:31 BUN 15 mg/dL (7-17) 01/31/18 07:31 Creatinine 0.8 mg/dL (0.7-1.2) 01/31/18 07:31 Estimated GFR > 60 ml/min 01/31/18 07:31 BUN/Creatinine Ratio 19 % 01/31/18 07:31 Glucose 171 mg/dL (65-100) H 01/31/18 07:31 POC Glucose 145 (70-105) H 01/31/18 08:18 Hemoglobin A1c 14.4 % (4-6) H 01/31/18 00:27 Lactic Acid 1.40 mmol/L (0.7-2.0) 01/30/18 15:34 Calcium 8.0 mg/dL (8.4-10.2) L 01/31/18 07:31 Phosphorus 1.80 mg/dL (2.5-4.5) L D 01/31/18 00:27 Magnesium 1.80 mg/dL (1.7-2.3) 01/31/18 00:27 Total Bilirubin 0.50 mg/dL (0.1-1.2) 01/30/18 02:16 AST 18 units/L (5-40) 01/30/18 02:16 ALT 15 units/L (7-56) 01/30/18 02:16 Alkaline Phosphatase 116 units/L (35-129) 01/30/18 02:16 Total Protein 8.4 g/dL (6.3-8.2) H 01/30/18 02:16 Albumin 4.6 g/dL (3.9-5) 01/30/18 02:16 Albumin/Globulin Ratio 1.2 % 01/30/18 02:16 HCG, Qual Negative (Negative) 01/30/18 09:44 Urine Color Yellow (Yellow) 01/30/18 09:45 Urine Turbidity Clear (Clear) 01/30/18 09:45 Urine pH 5.0 (5.0-7.0) 01/30/18 09:45 Ur Specific [place] 1.029 (1.003-1.030) 01/30/18 09:45 Urine Protein 100 mg/dl mg/dL (Negative) 01/30/18 09:45 Urine Glucose (UA) >=500 mg/dL (Negative) 01/30/18 09:45 Urine Ketones 80 mg/dL (Negative) 01/30/18 09:45 Urine Blood Mod (Negative) 01/30/18 09:45 Urine Nitrite Neg (Negative) 01/30/18 09:45 Urine Bilirubin Neg (Negative) 01/30/18 09:45 Urine Urobilinogen < 2.0 mg/dL (<2.0) 01/30/18 09:45 Ur Leukocyte Esterase Neg (Negative) 01/30/18 09:45 Urine WBC (Auto) 1.0 /HPF (0.0-6.0) 01/30/18 09:45 Urine RBC (Auto) 8.0 /HPF (0.0-6.0) 01/30/18 09:45 Hyaline Casts 4 /LPF 01/30/18 09:45 - Imaging and Cardiology CT scan - abdomen: image reviewed (reflux eosphagitis)
[2018-01-31] MEDS ORDERED: D50W (25GM) Syringe IV PRN (10:00)
[2018-01-31] MEDS: SODIUM CHLORIDE FLUSH SYRINGE 10 ML IV SCH ×2 (10:20→23:32)
[2018-01-31] MEDS: HEPARIN SUB-Q SCH ×2 (10:31→22:58)
[2018-01-31 10:50] LABS: BUN/Creatinine Ratio 18; Blood Urea Nitrogen 14 mg/dL (7-17); Calcium 8.1 mg/dL (8.4-10.2); Hemolysis Index 4
[2018-01-31] MEDS: HumaLOG SUB-Q SCH ×3 (11:30→22:35)
[2018-01-31 15:52] LABS: BUN/Creatinine Ratio 16; Blood Urea Nitrogen 11 mg/dL (7-17); Calcium 8.1 mg/dL (8.4-10.2); Hemolysis Index 3
[2018-02-01] MEDS ORDERED: APRESOLINE IV PRN (00:27)
[2018-02-01] MEDS: APRESOLINE IV SCH ×6 (01:11→23:02)
[2018-02-01 01:23] LABS: BUN/Creatinine Ratio 14; Blood Urea Nitrogen 11 mg/dL (7-17); Calcium 8.2 mg/dL (8.4-10.2); Hemolysis Index 17
[2018-02-01] MEDS: D5W/0.45% NACL/KCL 20 MEQ 20 MEQ/1,000 ML BAG IV SCH ×2 (05:22→19:24)
[2018-02-01] MEDS: ZOSYN/NS 3.375GM/50ML 3.375 GM/50 ML BAG IV SCH ×4 (05:23→23:08)
--- NOTE | 2018-02-01 08:50 | Discharge Summary ---
Providers - Providers Date of Admission: 01/31/18 09:23 Attending physician: STEPHEN MCCARTHY MD 01/30/18 14:13 Consult to Physician [CONS] Routine Consulting Provider: ANAYELI CORTES Reason For Exam: CCU ADMISSIONS Place consult to:: Dr. Walker Notified:: yes Phone number called:: face to face Was contact made?: Yes If yes, spoke with:: Dr. Walker Time called:: 14:15 01/30/18 23:29 Consult to Dietitian/Nutrition [CONS] Routine Physician Instructions: Reason For Exam: DKA Reason for Consult: Nutrition Recommendations Reason for Consult: Diet education Primary care physician: SUDHA TURPIN Hospitalization Condition: Stable Hospital course: Patient is 37 years old female with history of diabetes on metformin. Diabetes for about 3 years. Not Juvenile onset. Patient presented to the ER with nausea , vomiting and diarrhea for the last 3 days. Patient stated that she is unable to keep anything down. She is also complaining of abdominal pain, diffuse crampy in nature. Patient denied any fever, chest pain or shortness of breath or cough. She also denied any urinary symptoms.Never on Insulin till now. No Sob/Fever/chills patient on admission was started on DKA protocol. Patient did have elevated blood pressure initially this was corrected with hydralazine considering her diagnosis of diabetes I did start him on lisinopril side effects discussed extensively. Also did advice to have lipid profile tested dullness significant benefit from statins if this is elevated also by the control was discussed extensively. She is clinically stable at this time for discharge as tolerated diet. Discharge diagnosis (1) DKA (diabetic for ketoacidoses) (2) DM with hyperglycemia (3) TOBACCO USE DISORDER (4)HTN (5)Eosphagitis with Reflux Time spent for discharge: 35 MINS Exam - Physical Exam Narrative exam: VITAL SIGNS: Reviewed. GENERAL: The patient appeared well nourished and normally developed. Vital signs as documented. HEAD: No signs of head trauma. EYES: Pupils are equal. Extraocular motions intact. EARS: Hearing grossly intact. MOUTH: Oropharynx is normal. NECK: No adenopathy, no JVD. CHEST: Chest with mild wheezing breath sounds bilaterally. No rales, or rhonchi. CARDIAC: Regular rate and rhythm. S1 and S2, without murmurs, gallops, or rubs. VASCULAR: No Edema. Peripheral pulses normal and equal in all extremities. ABDOMEN: Soft, without detectable tenderness. No sign of distention. No rebound or guarding, and no masses palpated. Bowel Sounds normal. MUSCULOSKELETAL: Good range of motion of all major joints. Extremities without clubbing, cyanosis or edema. NEUROLOGIC EXAM: Alert and oriented x 3. No focal sensory or strength deficits. Speech normal. Follows commands. PSYCHIATRIC: Mood normal. SKIN: No rash or lesions. - Constitutional Vitals: Temp Pulse Resp BP Pulse Ox 99.0 F 112 H 20 138/80 100 02/01/18 00:05 02/01/18 06:30 02/01/18 00:05 02/01/18 06:30 02/01/18 00:05 Plan Activity: advance as tolerated, fall precautions Diet: diabetic Special Instructions: record daily BP diary, record blood sugar diary, smoking cessation Follow up with: SUDHA TURPIN MD [Primary Care Provider] - 3-5 Days Prescriptions: glyBURIDE [Glyburide] 5 mg PO DAILY #30 tablet Insulin NPH/Regular [NovoLIN 70/30] 30 unit SUB-Q BIDDIAB #60 units Lisinopril [Zestril TAB] 20 mg PO QDAY #30 tablet Pantoprazole [Protonix TAB] 40 mg PO QDAY #30 tablet
[2018-02-01] MEDS: HumaLOG SUB-Q SCH ×4 (09:08→23:01)
[2018-02-01 09:24] LABS: Basophils # (Auto) 0.1 K/mm3 (0.0-0.1); Basophils % (Auto) 0.7 % (0.0-1.8); Eosinophils # (Auto) 0.1 K/mm3 (0.0-0.4); Hematocrit 32.7 % (30.3-42.9); Hemoglobin 10.7 gm/dl (10.1-14.3); Lymphocytes # (Auto) 2.2 K/mm3 (1.2-5.4); Lymphocytes % (Auto) 30.2 % (13.4-35.0); Mean Corpuscular HGB Conc 33 % (30-34); Mean Corpuscular Hemoglobin 26 pg (28-32); Mean Corpuscular Volume 79 fl (79-97); Monocytes # (Auto) 0.6 K/mm3 (0.0-0.8); Monocytes % (Auto) 8.8 % (0.0-7.3); Platelet Count 288 K/mm3 (140-440); Red Blood Count 4.12 M/mm3 (3.65-5.03); Red Cell Distribution Width 14.3 % (13.2-15.2)
[2018-02-01] MEDS: REGLAN IV PRN ×2 (10:25→17:07)
[2018-02-01] MEDS ORDERED: DIFLUCAN 200 MG/100 ML BAG IV ONE (12:00)
[2018-02-01] MEDS: PROTONIX PO SCH (12:40)
[2018-02-01] MEDS: ZOFRAN IV PRN ×2 (12:44→12:51)
[2018-02-01] MEDS: SODIUM CHLORIDE FLUSH SYRINGE 10 ML IV SCH ×2 (12:50→23:06)
[2018-02-01] MEDS: ZESTRIL PO SCH (12:50)
[2018-02-01] MEDS: HEPARIN SUB-Q SCH ×2 (12:52→23:01)
--- NOTE | 2018-02-01 17:48 | Progress Note ---
Assessment and Plan Assessment and plan: Patient is 37 years old female with history of diabetes on metformin. Diabetes for about 3 years. Not Juvenile onset. Patient presented to the ER with nausea , vomiting and diarrhea for the last 3 days. Patient stated that she is unable to keep anything down. She is also complaining of abdominal pain, diffuse crampy in nature. Patient denied any fever, chest pain or shortness of breath or cough. She also denied any urinary symptoms.Never on Insulin till now. No Sob/Fever/chills. (1) DM with hyperglycemia 70/30 ON DISCHARGE Now with gastritis likely gastroparesis. if not resolving get gastric emptying scan (2) DKA (diabetic ketoacidoses)-Resp;ingrid Corrected with DKA protocol COUNSELLING PROVIDED Appropriate diet and insulin regimen discussed Follow ups discussed Anticipate discharge in AM (3) TOBACCO USE DISORDER Extensive Counselling provided 15 MINS, patient verbalized understanding (4)HTN Hydralazine PRN (5)Eosphagitis with Reflux PPI (6)DVT prophylaxis On Heparin Plan discussed with the patient and nursing staff at bedside History Interval history: The patient admitted with DKA. Patient seen and examined in no acute distress at this time. Began having nausea with vomiting today, Overnight was noted with elevated BP. Hospitalist Physical - Physical exam Narrative exam: VITAL SIGNS: Reviewed. GENERAL: The patient appeared well nourished and normally developed.lathergic appearing Vital signs as documented. HEAD: No signs of head trauma. EYES: Pupils are equal. Extraocular motions intact. EARS: Hearing grossly intact. MOUTH: Oropharynx is normal. NECK: No adenopathy, no JVD. CHEST: Chest with mild wheezing breath sounds bilaterally. No rales, or rhonchi. CARDIAC: Regular rate and rhythm. S1 and S2, without murmurs, gallops, or rubs. VASCULAR: No Edema. Peripheral pulses normal and equal in all extremities. ABDOMEN: Soft, without detectable tenderness. No sign of distention. No rebound or guarding, and no masses palpated. Bowel Sounds normal. MUSCULOSKELETAL: Good range of motion of all major joints. Extremities without clubbing, cyanosis or edema. NEUROLOGIC EXAM: Alert and oriented x 3. No focal sensory or strength deficits. Speech normal. Follows commands. PSYCHIATRIC: Mood normal. SKIN: No rash or lesions. - Constitutional Vitals: Temp Pulse Resp BP Pulse Ox 99.3 F 107 H 18 171/92 98 03/16/18 08:28 02/01/18 14:33 02/01/18 08:28 02/01/18 16:50 02/01/18 08:28 General appearance: Present: no acute distress, well-nourished Results - Labs CBC & Chem 7: 02/01/18 08:57 01/31/18 23:13 Labs: Laboratory Last Values WBC 7.3 K/mm3 (4.5-11.0) 02/01/18 08:57 RBC 4.12 M/mm3 (3.65-5.03) 02/01/18 08:57 Hgb 10.7 gm/dl (10.1-14.3) 02/01/18 08:57 Hct 32.7 % (30.3-42.9) D 02/01/18 08:57 MCV 79 fl (79-97) 02/01/18 08:57 MCH 26 pg (28-32) L 02/01/18 08:57 MCHC 33 % (30-34) 02/01/18 08:57 RDW 14.3 % (13.2-15.2) 02/01/18 08:57 Plt Count 288 K/mm3 (140-440) 02/01/18 08:57 Lymph % (Auto) 30.2 % (13.4-35.0) 02/01/18 08:57 Gem % (Auto) 8.8 % (0.0-7.3) H 02/01/18 08:57 Eos % (Auto) 1.0 % (0.0-4.3) 02/01/18 08:57 Baso % (Auto) 0.7 % (0.0-1.8) 02/01/18 08:57 Lymph # 2.2 K/mm3 (1.2-5.4) 02/01/18 08:57 Gem # 0.6 K/mm3 (0.0-0.8) 02/01/18 08:57 Eos # 0.1 K/mm3 (0.0-0.4) 02/01/18 08:57 Baso # 0.1 K/mm3 (0.0-0.1) 02/01/18 08:57 Seg Neutrophils % 59.3 % (40.0-70.0) 02/01/18 08:57 Seg Neutrophils # 4.4 K/mm3 (1.8-7.7) 02/01/18 08:57 Sodium 137 mmol/L (137-145) 01/31/18 23:13 Potassium 3.8 mmol/L (3.6-5.0) 01/31/18 23:13 Chloride 99.7 mmol/L (98-107) 01/31/18 23:13 Carbon Dioxide 22 mmol/L (22-30) 01/31/18 23:13 Anion Gap 19 mmol/L 01/31/18 23:13 BUN 11 mg/dL (7-17) 01/31/18 23:13 Creatinine 0.8 mg/dL (0.7-1.2) 01/31/18 23:13 Estimated GFR > 60 ml/min 01/31/18 23:13 BUN/Creatinine Ratio 14 % 01/31/18 23:13 Glucose 100 mg/dL (65-100) 01/31/18 23:13 POC Glucose 81 (70-105) 02/01/18 16:59 Hemoglobin A1c 14.4 % (4-6) H 01/31/18 00:27 Lactic Acid 1.40 mmol/L (0.7-2.0) 01/30/18 15:34 Calcium 8.2 mg/dL (8.4-10.2) L 01/31/18 23:13 Phosphorus 1.80 mg/dL (2.5-4.5) L D 01/31/18 00:27 Magnesium 1.80 mg/dL (1.7-2.3) 01/31/18 00:27 Total Bilirubin 0.50 mg/dL (0.1-1.2) 01/30/18 02:16 AST 18 units/L (5-40) 01/30/18 02:16 ALT 15 units/L (7-56) 01/30/18 02:16 Alkaline Phosphatase 116 units/L (35-129) 01/30/18 02:16 Total Protein 8.4 g/dL (6.3-8.2) H 01/30/18 02:16 Albumin 4.6 g/dL (3.9-5) 01/30/18 02:16 Albumin/Globulin Ratio 1.2 % 01/30/18 02:16 HCG, Qual Negative (Negative) 01/30/18 09:44 Urine Color Yellow (Yellow) 01/30/18 09:45 Urine Turbidity Clear (Clear) 01/30/18 09:45 Urine pH 5.0 (5.0-7.0) 01/30/18 09:45 Ur Specific Sacul 1.029 (1.003-1.030) 01/30/18 09:45 Urine Protein 100 mg/dl mg/dL (Negative) 01/30/18 09:45 Urine Glucose (UA) >=500 mg/dL (Negative) 01/30/18 09:45 Urine Ketones 80 mg/dL (Negative) 01/30/18 09:45 Urine Blood Mod (Negative) 01/30/18 09:45 Urine Nitrite Neg (Negative) 01/30/18 09:45 Urine Bilirubin Neg (Negative) 01/30/18 09:45 Urine Urobilinogen < 2.0 mg/dL (<2.0) 01/30/18 09:45 Ur Leukocyte Esterase Neg (Negative) 01/30/18 09:45 Urine WBC (Auto) 1.0 /HPF (0.0-6.0) 01/30/18 09:45 Urine RBC (Auto) 8.0 /HPF (0.0-6.0) 01/30/18 09:45 Hyaline Casts 4 /LPF 01/30/18 09:45
[2018-02-01] MEDS ORDERED: CATAPRES-TTS PATCH TD PRN (21:00)
[2018-02-02] MEDS: APRESOLINE IV SCH ×3 (02:53→10:09)
[2018-02-02] MEDS: D5W/0.45% NACL/KCL 20 MEQ 20 MEQ/1,000 ML BAG IV SCH (05:47)
[2018-02-02] MEDS: ZOSYN/NS 3.375GM/50ML 3.375 GM/50 ML BAG IV SCH (05:47)
[2018-02-02 05:52] VITALS: BP 122/84
[2018-02-02 07:02] LABS: Hematocrit 30.3 % (30.3-42.9); Mean Corpuscular HGB Conc 33 % (30-34); Mean Corpuscular Hemoglobin 26 pg (28-32); Mean Corpuscular Volume 79 fl (79-97); Platelet Count 281 K/mm3 (140-440); Red Blood Count 3.82 M/mm3 (3.65-5.03); Red Cell Distribution Width 14.1 % (13.2-15.2)
[2018-02-02 07:27] LABS: BUN/Creatinine Ratio 7; Blood Urea Nitrogen 5 mg/dL (7-17); Calcium 7.6 mg/dL (8.4-10.2); Hemolysis Index 4
--- NOTE | 2018-02-02 08:21 | Discharge Summary ---
Providers - Providers Date of Admission: 01/30/18 12:53 Date of discharge: 02/02/18 Attending physician: CIPRIANO MAGAÑA 01/30/18 14:13 Consult to Physician [CONS] Routine Consulting Provider: ANAYELI CORTES Reason For Exam: CCU ADMISSIONS Place consult to:: Dr. Walker Notified:: yes Phone number called:: face to face Was contact made?: Yes If yes, spoke with:: Dr. Walker Time called:: 14:15 01/30/18 23:29 Consult to Dietitian/Nutrition [CONS] Routine Physician Instructions: Reason For Exam: DKA Reason for Consult: Nutrition Recommendations Reason for Consult: Diet education Primary care physician: SUDHA TURPIN Hospitalization Reason for admission: DKA Condition: Stable Hospital course: Patient is 37 years old female with history of diabetes diagnosed 3 years ago on metformin who presented to the ER with nausea, vomiting and diarrhea for the last 3 days prior to admission. The patient was unable to keep any food down and complaining of some abdominal discomfort. The patient was admitted for DKA and placed on the protocol. The patient received IV fluid hydration and IV insulin. The DKA resolved over the course of the hospitalization and patient stabilized and transferred to the floor. Patient's blood sugar remained stable with 70/30 insulin. The abdominal discomfort was attributed to gastritis/ esophagitis with reflux and potentially a component of gastroparesis. CT scan of the abdomen and pelvis revealed findings consistent with diagnosis. The patient was also noted to have accelerated hypertension that was stabilized with medications. Dedicated discharge time 32 minutes. Disposition: DC-01 TO HOME OR SELFCARE Time spent for discharge: 32 - Discharge Diagnoses (1) Accelerated hypertension Status: Acute (2) GERD (gastroesophageal reflux disease) Status: Acute (3) Esophagitis Status: Acute (4) Gastritis Status: Acute (5) Abdominal pain Status: Acute (6) DKA (diabetic ketoacidoses) Status: Acute Qualifiers: Diabetes mellitus type: type 2 (7) Diabetes mellitus Status: Acute Core Measure Documentation - Palliative Care Palliative Care/ Comfort Measures: Not Applicable - Core Measures Any of the following diagnoses?: none Exam - Constitutional Vitals: Temp Pulse Resp BP Pulse Ox 98.9 F 82 20 122/84 98 02/01/18 23:20 02/02/18 05:48 02/01/18 23:20 02/02/18 05:48 02/01/18 23:20 General appearance: Present: no acute distress, well-nourished - EENT Eyes: Present: PERRL ENT: hearing intact, clear oral mucosa - Neck Neck: Present: supple, normal ROM - Respiratory Respiratory effort: normal Respiratory: bilateral: CTA - Cardiovascular Heart Sounds: Present: S1 & S2. Absent: rub, click - Extremities Extremities: pulses symmetrical, No edema Peripheral Pulses: within normal limits - Abdominal General gastrointestinal: Present: soft, non-tender, non-distended, normal bowel sounds Female genitourinary: Present: normal - Integumentary Integumentary: Present: clear, warm, dry - Musculoskeletal Musculoskeletal: gait normal, strength equal bilaterally - Psychiatric Psychiatric: appropriate mood/affect, intact judgment & insight - Neurologic Neurologic: CNII-XII intact, moves all extremities Plan Activity: no restrictions Weight Bearing Status: Full Weight Bearing Diet: diabetic Follow up with: SUDHA TURPIN MD [Primary Care Provider] - 3-5 Days Prescriptions: glyBURIDE [Glyburide] 5 mg PO DAILY #30 tablet Insulin NPH/Regular [NovoLIN 70/30] 30 unit SUB-Q BIDDIAB #60 units Lisinopril [Zestril TAB] 20 mg PO QDAY #30 tablet Pantoprazole [Protonix TAB] 40 mg PO QDAY #30 tablet
[2018-02-02] MEDS: HumaLOG SUB-Q SCH ×2 (09:20→12:40)
[2018-02-02] MEDS: ZESTRIL PO SCH (10:09)
[2018-02-02] MEDS: HEPARIN SUB-Q SCH (10:09)
[2018-02-02] MEDS: PROTONIX PO SCH (10:09)
== END 2018-02-02 12:55 | disposition home or self-care (01) | DRG 74 ==
LOC: ED 01:39 → CC1 12:53 → UNDOADMIN 12:53 → 3A 12:53 → UNDOADMIN 01-31 09:23 → 3A 01-31 09:30 → CC1 01-31 09:30
PROVIDERS: ADMIT Internal Medicine; ATTEND Hospitalist
DX: E11.43 Type 2 diabetes mellitus with diabetic autonomic (poly)neuropathy (principal); E11.10 Type 2 diabetes mellitus with ketoacidosis without coma; F17.200 Nicotine dependence, unspecified, uncomplicated; Z79.84 Long term (current) use of oral hypoglycemic drugs; K21.0 Gastro-esophageal reflux disease with esophagitis; I11.0 Hypertensive heart disease with heart failure; E11.65 Type 2 diabetes mellitus with hyperglycemia; K31.84 Gastroparesis
CPT/HCPCS: 36415; 74177; 80048; 80053; 81001; 82140; 82962; 83036; 83735; 84100; 84703; 85025; 85027; 87040; 96361; 96374; 96375; 99291; J0360; J1170; J1450; J1644; J1815; J2270; J2405; J2543; J2765; J7030; Q9967

== ENCOUNTER 2019-10-22 19:16 | Emergency (ER) | payer SELFPAY ==
--- NOTE | 2019-10-22 19:32 | Emergency Department Report ---
Blank Doc - Documentation Documentation: 39-year-old female that presents with abdominal pain with n/v. This initial assessment/diagnostic orders/clinical plan/treatment(s) is/are subject to change based on patient's health status, clinical progression and re- assessment by fellow clinical providers in the ED. Further treatment and workup at subsequent clinical providers discretion. Patient/guardians urged not to elope from the ED as their condition may be serious if not clinically assessed and managed. Initial orders include: 1- Patient sent to [facility] for further evaluation and treatment 2- labs 3- UA
[2019-10-22] MEDS ORDERED: ONDANSETRON 4 MG/2 ML INJ ONE (19:52)
[2019-10-22] MEDS ORDERED: CAPSAICIN 0.075% CREAM 60 GM TP STA (20:11)
[2019-10-22] MEDS ORDERED: SODIUM CHLORIDE 0.9% 1000 ML 2,000 ML IV ONE ×2 (20:11→21:55)
[2019-10-22] MEDS ORDERED: FAMOTIDINE 20 MG/2 ML INJ IV ONE (20:11)
[2019-10-22] MEDS ORDERED: ONDANSETRON 4 MG/2 ML INJ IV ONE (20:11)
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
[2019-10-22 20:39] LABS: Hematocrit 37.8 % (30.3-42.9); Hemoglobin 12.4 gm/dl (10.1-14.3); Mean Corpuscular HGB Conc 33 % (30-34); Mean Corpuscular Volume 81 fl (79-97); Platelet Count 327 K/mm3 (140-440); Red Blood Count 4.66 M/mm3 (3.65-5.03); Red Cell Distribution Width 12.9 % (13.2-15.2)
[2019-10-22 21:07] LABS: Alanine Aminotransferase 10 units/L (7-56); BUN/Creatinine Ratio 21; Blood Urea Nitrogen 23 mg/dL (7-17); Calcium 9.5 mg/dL (8.4-10.2); Hemolysis Index 8
--- NOTE | 2019-10-22 21:34 | XRay Report ---
CHEST 1 VIEW INDICATION: MAIN: n/v hematwemeis; ABD pain with vomiting blood X 3 days. COMPARISON: None FINDINGS: SUPPORT DEVICES: None. HEART / MEDIASTINUM: No significant abnormality. LUNGS / PLEURA: No significant pulmonary or pleural abnormality. No pneumothorax. ADDITIONAL FINDINGS: IMPRESSION: 1. No acute findings. Signer Name: Bradley Dillard MD Signed: 10/22/2019 9:30 PM Workstation Name: [id number][id number]
[2019-10-22] MEDS ORDERED: hydrALAZINE 20 MG/1 ML INJ IV ONE (21:36)
[2019-10-22] MEDS ORDERED: hydrALAZINE 20 MG/1 ML INJ ONE (21:39)
[2019-10-22] MEDS ORDERED: INSULIN REGULAR, HUMAN 100 UNITS/1 ML IV ONE (21:57)
[2019-10-22] MEDS ORDERED: labetaloL 100 MG/20 ML INJ MDV IV ONE (22:00)
[2019-10-22] MEDS ORDERED: HALOPERIDOL LACTATE 5 MG/1 ML INJ IM STA (22:28)
[2019-10-22 22:58] LABS: Bilirubin,Urine NEG (Negative); Blood,Urine MOD (Negative); Color,Urine Yellow (Yellow); Mucus,Urine FEW /HPF; Urobilinogen,Urine < 2.0 mg/dL (<2.0)
[2019-10-22 22:59] LABS: Protein,Urine >500 mg/dL (Negative)
[2019-10-22 23:02] LABS: Amphetamine Screen,Urine PRESUMPTIVE NEGATIVE; Benzodiazepines Screen,Urine PRESUMPTIVE NEGATIVE; Cocaine Screen,Urine PRESUMPTIVE NEGATIVE; Methadone Screen,Urine PRESUMPTIVE NEGATIVE; Opiate Screen,Urine PRESUMPTIVE NEGATIVE
[2019-10-22 23:18] LABS: Cannabinoid Screen,Urine PRESUMPTIVE POSITIVE
[2019-10-23 00:06] LABS: BUN/Creatinine Ratio 20; Blood Urea Nitrogen 20 mg/dL (7-17); Calcium 7.9 mg/dL (8.4-10.2); Hemolysis Index 19
[2019-10-23] MEDS ORDERED: CALCIUM GLUCONATE 1,000 MG in SODIUM CHLORIDE 0.9% 100 ML IV ONE (00:09)
[2019-10-23 03:52] VITALS: BP 151/84
== END 2019-10-23 03:52 | disposition home or self-care (01) ==
LOC: ED 19:16
DX: E11.40 Type 2 diabetes mellitus with diabetic neuropathy, unspecified (principal); K31.84 Gastroparesis; Z79.4 Long term (current) use of insulin; I10 Essential (primary) hypertension; F17.200 Nicotine dependence, unspecified, uncomplicated; F12.10 Cannabis abuse, uncomplicated; Z79.899 Other long term (current) drug therapy
CPT/HCPCS: 36415; 71045; 80048; 80053; 80307; 81001; 82550; 82962; 83690; 83735; 84703; 85027; 93005; 93010; 96365; 96375; 99284; J0360; J0610; J1630; J2405; J7030; J1815

== ENCOUNTER 2019-10-25 15:35 | Emergency (ER) | payer SELFPAY ==
--- NOTE | 2019-10-25 16:48 | Emergency Department Report ---
<DOUGLAS RODRIGUEZ - Last Filed: 10/25/19 16:50> ED Abdominal Pain HPI - General Chief Complaint: Abdominal Pain Stated Complaint: ABD PAIN Time Seen by Provider: 10/25/19 16:07 Source: patient, EMS Mode of arrival: Stretcher Limitations: No Limitations - History of Present Illness Initial Comments: 39-year-old Afro[place] female presents to the emergency room complaining of nausea vomiting and severe abdominal pain last 5 days. Patient states she is unable to keep anything down including her medications. Patient has a history of uncontrolled diabetes, gastritis, esophagitis, gastroparesis, hypertension uncontrolled and history of marijuana use. Patient presents to the emergency room for elevated blood pressure 206/123 heart rate of 102. Blood pressure was repeated blood pressure 200/117 96 heart rate 98% room air 13 respiration and blood sugar 309. Patient states that she is no longer on insulin that she takes oral medication but has not taken since she is not able to hold food down. Patient does admit to diarrhea. She denies any headache shortness of breathe and chest pain. Review of patient's chart patient was noted to be here on 10/22/2019 for the same complaints. Patient reports she has not followed up with any of provider since being discharged from this emergency room. MD Complaint: abdominal pain Onset/Timin -: days(s) Location: diffuse Radiation: none Migration to: no migration Severity scale (0 -10): 10 Quality: cramping Consistency: intermittent Improves With: nothing Worsens With: nothing Associated Symptoms: nausea, vomiting, diarrhea - Related Data LMP Date: 10/17/19 Home Medications Medication Instructions Recorded Confirmed Last Taken [place]-3 Fatty Acids/Fish Oil [Fish 1 each PO DAILY 01/30/18 01/30/18 01/28/18 Oil] Previous Rx's Medication Instructions Recorded Last Taken Type glyBURIDE [Glyburide] 5 mg PO DAILY #30 tablet 01/31/18 Unknown Rx Insulin NPH/Regular [NovoLIN 70/30] 30 unit SUB-Q BIDDIAB #60 units 02/01/18 Unknown Rx Lisinopril [Zestril TAB] 20 mg PO QDAY #30 tablet 02/01/18 Unknown Rx Famotidine [Pepcid] 20 mg PO BID #10 tablet 10/23/19 Unknown Rx Metoclopramide [Reglan TAB] 10 mg PO QID PRN #30 tab 10/23/19 Unknown Rx Pantoprazole [Protonix TAB] 40 mg PO QDAY #30 tablet 10/23/19 Unknown Rx Scotty Root [Scotty] 250 mg PO QID PRN #30 capsule 10/25/19 Unknown Rx Potassium Chloride 20 meq PO BID #20 liquid 10/25/19 Unknown Rx Promethazine [Phenergan SUPPOS] 50 mg GA Q6H PRN #15 supp.rect 10/25/19 Unknown Rx Allergies Allergy/AdvReac Type Severity Reaction Status Date / Time No Known Allergies Allergy Verified 04/24/15 10:13 ED Review of Systems Comment: All other systems reviewed and negative Gastrointestinal: abdominal pain, nausea, vomiting, diarrhea ED Past Medical Hx - Past Medical History Hx Hypertension: Yes Hx Congestive Heart Failure: No Hx Diabetes: Yes Hx Asthma: No Additional medical history: SANJIV 05-28-2017 - Social History Smoking Status: Current Every Day Smoker Substance Use Type: None - Medications Home Medications: Home Medications Medication Instructions Recorded Confirmed Last Taken Type [place]-3 Fatty Acids/Fish Oil [Fish 1 each PO DAILY 01/30/18 01/30/18 01/28/18 History Oil] glyBURIDE [Glyburide] 5 mg PO DAILY #30 tablet 01/31/18 Unknown Rx Insulin NPH/Regular [NovoLIN 70/30] 30 unit SUB-Q BIDDIAB #60 units 02/01/18 Unknown Rx Lisinopril [Zestril TAB] 20 mg PO QDAY #30 tablet 02/01/18 Unknown Rx Famotidine [Pepcid] 20 mg PO BID #10 tablet 10/23/19 Unknown Rx Metoclopramide [Reglan TAB] 10 mg PO QID PRN #30 tab 10/23/19 Unknown Rx Pantoprazole [Protonix TAB] 40 mg PO QDAY #30 tablet 10/23/19 Unknown Rx Scotty Root [Scotty] 250 mg PO QID PRN #30 capsule 10/25/19 Unknown Rx Potassium Chloride 20 meq PO BID #20 liquid 10/25/19 Unknown Rx Promethazine [Phenergan SUPPOS] 50 mg GA Q6H PRN #15 supp.rect 10/25/19 Unknown Rx ED Physical Exam - General Limitations: No Limitations General appearance: alert, in no apparent distress - Head Head exam: Present: atraumatic, normocephalic - Eye Eye exam: Present: EOMI - ENT ENT exam: Present: normal exam, normal orophraynx, mucous membranes moist - Neck Neck exam: Present: full ROM - Respiratory Respiratory exam: Present: normal lung sounds bilaterally. Absent: respiratory distress - Cardiovascular Cardiovascular Exam: Present: regular rate, normal rhythm. Absent: systolic murmur, diastolic murmur, rubs, gallop - GI/Abdominal GI/Abdominal exam: Present: soft, tenderness, normal bowel sounds. Absent: distended, guarding, rebound - Neurological Exam Neurological exam: Present: alert, oriented X3 - Psychiatric Psychiatric exam: Present: normal affect, normal mood - Skin Skin exam: Present: warm, dry, intact, normal color. Absent: rash ED Medical Decision Making - Medical Decision Making 39-year-old Afro[place] female presents to the emergency room complaining of nausea vomiting and severe abdominal pain last 5 days. Patient states she is unable to keep anything down including her medications. Patient has a history of uncontrolled diabetes, gastritis, esophagitis, gastroparesis, hypertension uncontrolled and history of marijuana use. Patient presents to the emergency ro om for elevated blood pressure 206/123 heart rate of 102. Blood pressure was repeated blood pressure 200/117 96 heart rate 98% room air 13 respiration and blood sugar 309. Patient states that she is no longer on insulin that she takes oral medication but has not taken since she is not able to hold food down. Patient does admit to diarrhea. She denies any headache shortness of breathe and chest pain. Review of patient's chart patient was noted to be here on 10/22/2019 for the same complaints. Patient reports she has not followed up with any of provider since being discharged from this emergency room. IV normal saline, IV labetalol 10 mg IV. Carafate liquid 1 g. Zofran 4 mg IV. Spoke in depth with patient regarding her gastroparesis secondary to uncontrolled diabetes as well as hyper emesis from THC. I discussed the patient she needs to have regular follow-up with a primary care provider every 3 months for her diabetes. I discussed the patient that marijuana can stay in her system for 3-4 weeks. Patient verbalizes understanding.. ED Disposition Clinical Impression: Gastroparesis, Nausea & vomiting, Abdominal pain Disposition: DC- TO HOME OR SELFCARE Condition: Stable Instructions: Abdominal Pain (ED) Additional Instructions: As we discussed, symptoms likely coming from a combination of factors, including poorly controlled diabetes, and probable chronic exposure of cannabis/marijuana. Recommend the patient stop consuming marijuana as soon as possible. Recommend the patient participate in physical activities as tolerated, eat plenty of fiber, vegetable, lean protein, and discontinue first and second had exposure to marijuana and cannabis. Take the Reglan medication, scotty medication as needed for nausea and vomiting, use the Phenergan suppository as needed for intractable nausea and vomiting. Follow up with a primary care doctor or mill worker within the next 7-10 days. Return to the emergency room right away with new, worsening or different symptoms, or symptoms not present on the initial emergency room evaluation. Avoid consumption of Motrin, ibuprofen, Naprosyn, Aleve, heavy and/or spicy foods. Prescriptions: Scotty Root [Scotty] 250 mg PO QID PRN #30 capsule PRN Reason: Nausea Promethazine [Phenergan SUPPOS] 50 mg GA Q6H PRN #15 supp.rect PRN Reason: Nausea Potassium Chloride 20 meq PO BID #20 liquid Referrals: [facility] [Provider Group] - 3-5 Days [facility] [Provider Group] - 3-5 Days [facility] [Provider Group] - 3-5 Days <SUDHA SOMERS - Last Filed: 10/25/19 21:40> ED Review of Systems ROS: Stated complaint: ABD PAIN Other details as noted in HPI ED Course Vital Signs 10/25/19 10/25/19 10/25/19 15:55 16:10 17:46 Temperature 99.5 F Pulse Rate 102 H 93 H 94 H Respiratory 18 Rate Blood Pressure 206/123 214/127 Blood Pressure 223/127 [Left] O2 Sat by Pulse 100 Oximetry 10/25/19 10/25/19 10/25/19 17:51 17:52 18:02 Temperature Pulse Rate 90 93 H Respiratory 13 Rate Blood Pressure Blood Pressure 196/113 231/129 [Left] O2 Sat by Pulse 99 Oximetry 10/25/19 10/25/19 10/25/19 19:10 19:30 19:50 Temperature Pulse Rate 96 H 95 H 100 H Respiratory 18 18 18 Rate Blood Pressure Blood Pressure 139/90 155/92 201/120 [Left] O2 Sat by Pulse 100 100 100 Oximetry - Reevaluation(s) Reevaluation #1: 10/25/19 21:39 No active vomiting at this time. Anion gap improved. Hypokalemia reviewed and appreciated. Vital Signs 10/25/19 10/25/19 10/25/19 15:55 16:10 17:46 Temperature 99.5 F Pulse Rate 102 H 93 H 94 H Respiratory 18 Rate Blood Pressure 206/123 214/127 Blood Pressure 223/127 [Left] O2 Sat by Pulse 100 Oximetry 10/25/19 10/25/19 10/25/19 17:51 17:52 18:02 Temperature Pulse Rate 90 93 H Respiratory 13 Rate Blood Pressure Blood Pressure 196/113 231/129 [Left] O2 Sat by Pulse 99 Oximetry 10/25/19 10/25/19 10/25/19 19:10 19:30 19:50 Temperature Pulse Rate 96 H 95 H 100 H Respiratory 18 18 18 Rate Blood Pressure Blood Pressure 139/90 155/92 201/120 [Left] O2 Sat by Pulse 100 100 100 Oximetry Lab Results 10/25/19 10/25/19 10/25/19 Range/Units 16:56 17:21 17:21 Sodium 134 L (137-145) mmol/L Potassium 3.6 (3.6-5.0) mmol/L Chloride 93.3 L (98-107) mmol/L Carbon Dioxide 20 L (22-30) mmol/L Anion Gap 24 mmol/L BUN 19 H (7-17) mg/dL Creatinine 1.2 (0.7-1.2) mg/dL Estimated GFR > 60 ml/min BUN/Creatinine Ratio 16 % Glucose 327 H (65-100) mg/dL POC Glucose 309 H (70-105) Calcium 8.6 (8.4-10.2) mg/dL Magnesium 1.80 (1.7-2.3) mg/dL Total Creatine Kinase 140 H (30-135) units/L HCG, Quant < 2 (0-4) mIU/mL 10/25/19 10/25/19 Range/Units 19:57 20:42 Sodium 139 (137-145) mmol/L Potassium 3.1 L (3.6-5.0) mmol/L Chloride 103.6 (98-107) mmol/L Carbon Dioxide 21 L (22-30) mmol/L Anion Gap 18 mmol/L BUN 18 H (7-17) mg/dL Creatinine 1.1 (0.7-1.2) mg/dL Estimated GFR > 60 ml/min BUN/Creatinine Ratio 16 % Glucose 249 H (65-100) mg/dL POC Glucose 252 H (70-105) Calcium 7.9 L (8.4-10.2) mg/dL Magnesium (1.7-2.3) mg/dL Total Creatine Kinase (30-135) units/L HCG, Quant (0-4) mIU/mL ED Medical Decision Making - Lab Data Result diagrams: 10/25/19 20:42 Vital Signs 10/25/19 10/25/19 10/25/19 15:55 16:10 17:46 Temperature 99.5 F Pulse Rate 102 H 93 H 94 H Respiratory 18 Rate Blood Pressure 206/123 214/127 Blood Pressure 223/127 [Left] O2 Sat by Pulse 100 Oximetry 10/25/19 10/25/19 10/25/19 17:51 17:52 18:02 Temperature Pulse Rate 90 93 H Respiratory 13 Rate Blood Pressure Blood Pressure 196/113 231/129 [Left] O2 Sat by Pulse 99 Oximetry 10/25/19 10/25/19 10/25/19 19:10 19:30 19:50 Temperature Pulse Rate 96 H 95 H 100 H Respiratory 18 18 18 Rate Blood Pressure Blood Pressure 139/90 155/92 201/120 [Left] O2 Sat by Pulse 100 100 100 Oximetry Lab Results 10/25/19 10/25/19 10/25/19 Range/Units 16:56 17:21 17:21 Sodium 134 L (137-145) mmol/L Potassium 3.6 (3.6-5.0) mmol/L Chloride 93.3 L (98-107) mmol/L Carbon Dioxide 20 L (22-30) mmol/L Anion Gap 24 mmol/L BUN 19 H (7-17) mg/dL Creatinine 1.2 (0.7-1.2) mg/dL Estimated GFR > 60 ml/min BUN/Creatinine Ratio 16 % Glucose 327 H (65-100) mg/dL POC Glucose 309 H (70-105) Calcium 8.6 (8.4-10.2) mg/dL Magnesium 1.80 (1.7-2.3) mg/dL Total Creatine Kinase 140 H (30-135) units/L HCG, Quant < 2 (0-4) mIU/mL 10/25/19 Range/Units 19:57 Sodium (137-145) mmol/L Potassium (3.6-5.0) mmol/L Chloride (98-107) mmol/L Carbon Dioxide (22-30) mmol/L Anion Gap mmol/L BUN (7-17) mg/dL Creatinine (0.7-1.2) mg/dL Estimated GFR ml/min BUN/Creatinine Ratio % Glucose (65-100) mg/dL POC Glucose 252 H (70-105) Calcium (8.4-10.2) mg/dL Magnesium (1.7-2.3) mg/dL Total Creatine Kinase (30-135) units/L HCG, Quant (0-4) mIU/mL Critical care attestation.: If time is entered above; I have spent that time in minutes in the direct care of this critically ill patient, excluding procedure time. ED Disposition Is pt being admited?: No Does the pt Need Aspirin: No
--- NOTE | 2019-10-25 17:05 | Event Note ---
Date of service: 10/25/19 Face to Face: Patient is a 39-year-old female, with a history of poorly controlled diabetes mellitus, known hemoglobin A1c of greater than 14, cannabis consumption, and presumed cannabinoid hyperemesis syndrome. I saw this patient a few days ago for abdominal pain, nausea, vomiting and hypertension. She returns with her current complaint of the same. Apparently, was not able to get scotty prescription filled, or Phenergan prescription filled. Extensive discussion had with patient and family regarding nature and clinical history of gastroparesis, and cannabinoid hyperemesis syndrome. Patient feels improved at this time. She is tolerating liquid ice chips at this time. Hyperglycemia improved. Hypertension improved. We discussed diet, left lifestyle modifications, and need to stop cannabis consumption. Patient family verbalized understanding. Mother has requested repeat/reprint prescriptions for both Phenergan, and scotty. Vital Signs 10/25/19 10/25/19 10/25/19 15:55 16:10 17:46 Temperature 99.5 F Pulse Rate 102 H 93 H 94 H Respiratory 18 Rate Blood Pressure 206/123 214/127 Blood Pressure 223/127 [Left] O2 Sat by Pulse 100 Oximetry 10/25/19 10/25/19 10/25/19 17:51 17:52 18:02 Temperature Pulse Rate 90 93 H Respiratory 13 Rate Blood Pressure Blood Pressure 196/113 231/129 [Left] O2 Sat by Pulse 99 Oximetry 10/25/19 10/25/19 10/25/19 19:10 19:30 19:50 Temperature Pulse Rate 96 H 95 H 100 H Respiratory 18 18 18 Rate Blood Pressure Blood Pressure 139/90 155/92 201/120 [Left] O2 Sat by Pulse 100 100 100 Oximetry Lab Results 10/25/19 10/25/19 10/25/19 Range/Units 16:56 17:21 17:21 Sodium 134 L (137-145) mmol/L Potassium 3.6 (3.6-5.0) mmol/L Chloride 93.3 L (98-107) mmol/L Carbon Dioxide 20 L (22-30) mmol/L Anion Gap 24 mmol/L BUN 19 H (7-17) mg/dL Creatinine 1.2 (0.7-1.2) mg/dL Estimated GFR > 60 ml/min BUN/Creatinine Ratio 16 % Glucose 327 H (65-100) mg/dL POC Glucose 309 H (70-105) Calcium 8.6 (8.4-10.2) mg/dL Magnesium 1.80 (1.7-2.3) mg/dL Total Creatine Kinase 140 H (30-135) units/L HCG, Quant < 2 (0-4) mIU/mL 10/25/19 Range/Units 19:57 Sodium (137-145) mmol/L Potassium (3.6-5.0) mmol/L Chloride (98-107) mmol/L Carbon Dioxide (22-30) mmol/L Anion Gap mmol/L BUN (7-17) mg/dL Creatinine (0.7-1.2) mg/dL Estimated GFR ml/min BUN/Creatinine Ratio % Glucose (65-100) mg/dL POC Glucose 252 H (70-105) Calcium (8.4-10.2) mg/dL Magnesium (1.7-2.3) mg/dL Total Creatine Kinase (30-135) units/L HCG, Quant (0-4) mIU/mL
[2019-10-25] MEDS ORDERED: ONDANSETRON 4 MG/2 ML INJ IV ONE (17:21)
[2019-10-25] MEDS ORDERED: SUCRALFATE 1 GM/10 ML ORAL LIQD PO ONE ×2 (17:21→17:22)
[2019-10-25 17:48] LABS: BUN/Creatinine Ratio 16; Blood Urea Nitrogen 19 mg/dL (7-17); Calcium 8.6 mg/dL (8.4-10.2); Hemolysis Index 5
[2019-10-25] MEDS ORDERED: SODIUM CHLORIDE 0.9% 1000 ML 2,000 ML IV ONE (19:09)
[2019-10-25] MEDS ORDERED: INSULIN REGULAR, HUMAN 100 UNITS/1 ML IV ONE (19:09)
[2019-10-25] MEDS ORDERED: SODIUM CHLORIDE 0.9% 1000 ML 1,000 ML IV ONE (19:09)
[2019-10-25 21:19] LABS: BUN/Creatinine Ratio 16; Blood Urea Nitrogen 18 mg/dL (7-17); Calcium 7.9 mg/dL (8.4-10.2); Hemolysis Index 5
[2019-10-25] MEDS ORDERED: POTASSIUM CHLORIDE ER 20 MEQ TAB PO ONE (21:38)
[2019-10-25] MEDS ORDERED: POTASSIUM CHLORIDE 10 MEQ 10 MEQ/100 ML BAG IV SCH (22:00)
[2019-10-25 22:55] VITALS: BP 189/98
== END 2019-10-25 22:55 | disposition home or self-care (01) ==
LOC: ED 15:35
DX: E11.43 Type 2 diabetes mellitus with diabetic autonomic (poly)neuropathy (principal); K31.84 Gastroparesis; I10 Essential (primary) hypertension; R11.2 Nausea with vomiting, unspecified; F17.200 Nicotine dependence, unspecified, uncomplicated; Z79.899 Other long term (current) drug therapy
CPT/HCPCS: 36415; 80048; 82550; 82962; 83735; 84702; 96361; 96374; 96375; 99284; J2405; J7030; J1815

== ENCOUNTER 2021-10-25 15:07 | Emergency (ER) | payer SELFPAY ==
[2021-10-25 15:13] VITALS: BP 135/74
--- NOTE | 2021-10-25 16:56 | Emergency Department Report ---
ED General Adult HPI - General Chief complaint: Eye Problems Stated complaint: Painless left-sided visual loss PUI?: No Time Seen by Provider: 10/25/21 16:08 Source: patient, RN notes reviewed, old records reviewed Mode of arrival: Ambulatory Limitations: No Limitations - History of Present Illness Initial comments: The patient is a pleasant 41-year-old female. I have evaluated this patient in the past. She reports that she is not . She is not COVID-19 vaccinated. Her past medical history includes obesity, hypertension, diabetes, hemoglobin A1c was 14.4 in 2018, end-stage renal disease on hemodialysis, Sunday, Sunday, Sunday. Her last hemodialysis session was yesterday. The patient presents to the ER today with complaint of painless left-sided monocular visual loss, for 3 to 4 days. The patient denies trauma. The patient denies pain. The patient describes loss of vision as initially lines of light, and now she can perceive shadow and faint colors. This is only in her left eye. It does not involve her right eye. She denies headache, chest pain, abdominal pain, vomiting, weakness/numbness, fe vers and chills. He does not wear glasses or contact lenses. Her dialysis access is a right sided thoracic wall vascular access catheter -: Gradual, days(s) Location: eyes (Left eye ) Severity scale (0 -10): 0 Quality: constant Improves with: none Worsens with: none Associated Symptoms: denies other symptoms - Related Data Home Medications Medication Instructions Recorded Confirmed Last Taken [place]-3 Fatty Acids/Fish Oil [Fish 1 each PO DAILY 01/30/18 01/30/18 01/28/18 Oil] Previous Rx's Medication Instructions Recorded Last Taken Type glyBURIDE [Glyburide] 5 mg PO DAILY #30 tablet 01/31/18 Unknown Rx Insulin NPH/Regular [NovoLIN 70/30] 30 unit SUB-Q BIDDIAB #60 units 02/01/18 Unknown Rx lisinopriL [Zestril TAB] 20 mg PO QDAY #30 tablet 02/01/18 Unknown Rx Famotidine [Pepcid] 20 mg PO BID #10 tablet 10/23/19 Unknown Rx Metoclopramide [Reglan TAB] 10 mg PO QID PRN #30 tab 10/23/19 Unknown Rx Pantoprazole [Protonix TAB] 40 mg PO QDAY #30 tablet 10/23/19 Unknown Rx Ree Root [Ree] 250 mg PO QID PRN #30 capsule 10/25/19 Unknown Rx Potassium Chloride 20 meq PO BID #20 liquid 10/25/19 Unknown Rx Promethazine [Phenergan SUPPOS] 50 mg NC Q6H PRN #15 supp.rect 10/25/19 Unknown Rx Dicyclomine [Bentyl] 20 mg PO QID #10 tablet 06/10/20 Unknown Rx Ondansetron [Zofran Odt] 4 mg PO Q8HR #10 tab.rapdis 06/10/20 Unknown Rx Allergies Allergy/AdvReac Type Severity Reaction Status Date / Time No Known Allergies Allergy Verified 06/10/20 16:10 ED Review of Systems ROS: Stated complaint: VISION FAILURE Other details as noted in HPI Constitutional: denies: fever Eyes: vision change. denies: eye pain, eye discharge ENT: denies: epistaxis Respiratory: denies: cough Cardiovascular: denies: chest pain Gastrointestinal: denies: abdominal pain Musculoskeletal: denies: back pain Neurological: denies: weakness, numbness, paresthesias Hematological/Lymphatic: denies: easy bleeding ED Past Medical Hx - Past Medical History Previous Medical History?: Yes Hx Hypertension: Yes Hx Congestive Heart Failure: No Hx Diabetes: Yes Hx Asthma: No Additional medical history: [facility] 05-28-2017 - Surgical History Past Surgical History?: Yes - Social History Substance Use Type: None - Medications Home Medications: Home Medications Medication Instructions Recorded Confirmed Last Taken Type [place]-3 Fatty Acids/Fish Oil [Fish 1 each PO DAILY 01/30/18 01/30/18 01/28/18 History Oil] glyBURIDE [Glyburide] 5 mg PO DAILY #30 tablet 01/31/18 Unknown Rx Insulin NPH/Regular [NovoLIN 70/30] 30 unit SUB-Q BIDDIAB #60 units 02/01/18 Unknown Rx lisinopriL [Zestril TAB] 20 mg PO QDAY #30 tablet 02/01/18 Unknown Rx Famotidine [Pepcid] 20 mg PO BID #10 tablet 10/23/19 Unknown Rx Metoclopramide [Reglan TAB] 10 mg PO QID PRN #30 tab 10/23/19 Unknown Rx Pantoprazole [Protonix TAB] 40 mg PO QDAY #30 tablet 10/23/19 Unknown Rx Ree Root [Ree] 250 mg PO QID PRN #30 capsule 10/25/19 Unknown Rx Potassium Chloride 20 meq PO BID #20 liquid 10/25/19 Unknown Rx Promethazine [Phenergan SUPPOS] 50 mg NC Q6H PRN #15 supp.rect 10/25/19 Unknown Rx Dicyclomine [Bentyl] 20 mg PO QID #10 tablet 06/10/20 Unknown Rx Ondansetron [Zofran Odt] 4 mg PO Q8HR #10 tab.rapdis 06/10/20 Unknown Rx ED Physical Exam - General Limitations: No Limitations General appearance: alert, in no apparent distress - Head Head exam: Present: atraumatic, normocephalic - Eye Eye exam: Present: normal appearance, PERRL, EOMI, other (Right-sided visual acuity: Intact to finger counting, color perception, reading at a close dist ance. Left eye visual perception only intact to shapes, and light/dark perception). Absent: nystagmus - ENT ENT exam: Present: normal exam, normal orophraynx, mucous membranes moist, normal external ear exam - Neck Neck exam: Present: normal inspection, full ROM. Absent: tenderness, meningismus - Respiratory Respiratory exam: Present: normal lung sounds bilaterally. Absent: respiratory distress, wheezes, rales, rhonchi, stridor, decreased breath sounds - Cardiovascular Cardiovascular Exam: Present: regular rate, normal rhythm, normal heart sounds. Absent: bradycardia, tachycardia, irregular rhythm, systolic murmur, diastolic murmur, rubs, gallop - GI/Abdominal GI/Abdominal exam: Present: soft. Absent: distended, tenderness, guarding, rebound, rigid, pulsatile mass - Extremities Exam Extremities exam: Present: normal inspection, full ROM, pedal edema (1+ edema in the bilateral lower extremity), other (2+ pulses noted in the bilateral upper and lower extremities. There is no palpable cord. negative Homans sign. Muscular compartments are soft. The pelvis is stable.). Absent: calf tenderness - Back Exam Back exam: Present: normal inspection, full ROM. Absent: tenderness, CVA tenderness (R), CVA tenderness (L), paraspinal tenderness, vertebral tenderness - Neurological Exam Neurological exam: Present: alert, oriented X3, normal gait, other (There is no facial droop. The tongue is midline. Extraocular movements are intact bilaterally. There is 5 out of 5 strength in bilateral upper and lower extremities. Sensation is intact to light touch bilateral upper and lower extremities. There is no past-pointing. There is no pronator drift.). Absent: motor sensory deficit - Psychiatric Psychiatric exam: Present: normal affect, normal mood - Skin Skin exam: Present: warm, dry, intact, normal color. Absent: rash ED Course Vital Signs 10/25/21 15:12 Temperature 98.2 F Pulse Rate 75 Respiratory 15 Rate Blood Pressure 135/74 [Right] O2 Sat by Pulse 99 Oximetry ED Medical Decision Making - Lab Data Vital Signs 10/25/21 15:12 Temperature 98.2 F Pulse Rate 75 Respiratory 15 Rate Blood Pressure 135/74 [Right] O2 Sat by Pulse 99 Oximetry - Medical Decision Making Differential diagnosis, including but not limited to: Vitreous hemorrhage, vitreous detachment, retinal hemorrhage, retinal detachment Assessment and plan: 41-year-old female, who was afebrile, with reassuring vital signs, who is clinically sober, who presents to the ER today with complaint of painless left-sided monocular visual loss for 3 to 4 days, EOMI, no direct or consensual photophobia, pupils reactive to light bilaterally, pupils 3 to 4 mm bilaterally, right-sided visual acuity intact to finger counting, color perception, reading at a close distance, left-sided visual acuity intact to shapes, and minimal colors, [id number] bedside ocular ultrasound for the left eye demonstrates intact anterior chamber, intact globe, and what appears to be hyperechoic material in the left posterior chamber, suspicious for retinal versus vitreous hemorrhage versus retinal detachment. We do not have ophthalmology on-call for this facility, and the patient has endorsed a desire to be seen expediently by an knife operator. Contacted [place] [facility] on-call, Dr. Black, and discussed the patient's history, physical, [id number], and clinical impression. She recommends transfer for expedient evaluation. Also discussed the patient's history, physical, presentation including compression with the ER physician, Dr. Gupta, who has graciously accepted the patient as an ER to ER transfer. The patient states that she has someone who can drive her to the emergency room as a transfer, and she much prefers to transfer in private vehicle, rather than an ambulance. Risks, benefits alternatives of either mechanism of transfer I discussed with the patient, who articulated understanding, and the patient provided verbal and written informed consent for transfer via private vehicle, to [place] for urgent ophthalmology consultation. Patient is otherwise hemodynamically stable, protecting her airway, in no acute distress, and medically suitable for transfer for definitive consultative services not available at this facility. She can follow-up tomorrow for her outpatient hemodialysis Critical care attestation.: If time is entered above; I have spent that time in minutes in the direct care of this critically ill patient, excluding procedure time. ED Disposition Clinical Impression: Visual loss Disposition: 02 [facility]ORT TERM [facility]ITAL Is pt being admited?: No Does the pt Need Aspirin: No Condition: Good Instructions: Blurred Vision, Adult Additional Instructions: Please do not eat any food until cleared to do so by an knife operator. Do not take Motrin, ibuprofen, Naprosyn, Aleve, aspirin, or any blood thinning medications. As we discussed, patient is to transfer with private vehicle, and friends/family member to drive her to [facility], at [address] [place] [address]. When presented to the emergency room, please inform the charge nurse that you have been accepted as a transfer by Dr. Pittman, and will be seen by Dr. Black, or one of her colleagues from the ophthalmology service. It is very important that the patient present immediately to [facility], with transfer paperwork and form in place. Please return to the emergency room right away with new pain, worsened pain, migration of pain, projectile vomiting, change in mental status, confusion, inability tolerate liquid feeds, new, worsened or different symptoms not present on the initial emergency room evaluation. Patient will likely need to follow-up with [place] [facility], but for the patient's convenience, we will also provide her with a list of number of local ophthalmology specialists. Referrals: ROSA RAVI MD [Staff Physician] - 3-5 Days JULIET JACKSON MD [Staff Physician] - 3-5 Days JUVENCIO MONTEZ MD [Staff Physician] - 3-5 Days
== END 2021-10-25 18:00 | disposition short-term general hospital (02) ==
LOC: ED 15:07
DX: H54.7 Unspecified visual loss (principal); I10 Essential (primary) hypertension; E11.9 Type 2 diabetes mellitus without complications; Z98.890 Other specified postprocedural states; Z79.899 Other long term (current) drug therapy
CPT/HCPCS: 99281

== ENCOUNTER 2021-12-11 14:28 | Inpatient (IN) | payer SELFPAY ==
--- NOTE | 2021-12-11 15:43 | Emergency Department Report ---
<DOUGLAS RODRIGUEZ - Last Filed: 12/11/21 15:32> ED General Adult HPI - General Chief complaint: Medical Clearance Stated complaint: DIALYSIS NEEDED Source: patient Mode of arrival: Ambulatory Limitations: No Limitations - History of Present Illness Initial comments: 41-year-old -[place] female presents to the emergency room stating that she has not had dialysis for 1 week. Patient complains of swelling all the way up to her thighs. She denies any shortness of breathing. Patient states that she has been getting the run around between [facility] on [address] and [facility] on [facility] [address]. Patient states that she was recently hospitalized for a week at [facility] due to her hypertension. Was found to have COVID while being admitted at [facility]. Patient states that she has been on dialysis since August 2021. Patient states she follows a fios line installer at [facility]. Onset/Timin -: week(s) - Related Data Home Medications Medication Instructions Recorded Confirmed Last Taken [place]-3 Fatty Acids/Fish Oil [Fish 1 each PO DAILY 01/30/18 01/30/18 01/28/18 Oil] Previous Rx's Medication Instructions Recorded Last Taken Type glyBURIDE [Glyburide] 5 mg PO DAILY #30 tablet 01/31/18 Unknown Rx Insulin NPH/Regular [NovoLIN 70/30] 30 unit SUB-Q BIDDIAB #60 units 02/01/18 Unknown Rx lisinopriL [Zestril TAB] 20 mg PO QDAY #30 tablet 02/01/18 Unknown Rx Famotidine [Pepcid] 20 mg PO BID #10 tablet 10/23/19 Unknown Rx Metoclopramide [Reglan TAB] 10 mg PO QID PRN #30 tab 10/23/19 Unknown Rx Pantoprazole [Protonix TAB] 40 mg PO QDAY #30 tablet 10/23/19 Unknown Rx Ree Root [Ree] 250 mg PO QID PRN #30 capsule 10/25/19 Unknown Rx Potassium Chloride 20 meq PO BID #20 liquid 10/25/19 Unknown Rx Promethazine [Phenergan SUPPOS] 50 mg [place] Q6H PRN #15 supp.rect 10/25/19 Unknown Rx Dicyclomine [Bentyl] 20 mg PO QID #10 tablet 06/10/20 Unknown Rx Ondansetron [Zofran Odt] 4 mg PO Q8HR #10 tab.rapdis 06/10/20 Unknown Rx Allergies Allergy/AdvReac Type Severity Reaction Status Date / Time No Known Allergies Allergy Verified 06/10/20 16:10 ED Past Medical Hx - Past Medical History Previous Medical History?: Yes Hx Hypertension: Yes Hx Congestive Heart Failure: No Hx Diabetes: Yes Hx Renal Disease: Yes (On dialysis M,W,F) Hx Asthma: No Additional medical history: [facility] 05-28-2017 - Social History Substance Use Type: None - Medications Home Medications: Home Medications Medication Instructions Recorded Confirmed Last Taken Type [place]-3 Fatty Acids/Fish Oil [Fish 1 each PO DAILY 01/30/18 01/30/18 01/28/18 History Oil] glyBURIDE [Glyburide] 5 mg PO DAILY #30 tablet 01/31/18 Unknown Rx Insulin NPH/Regular [NovoLIN 70/30] 30 unit SUB-Q BIDDIAB #60 units 02/01/18 Unknown Rx lisinopriL [Zestril TAB] 20 mg PO QDAY #30 tablet 02/01/18 Unknown Rx Famotidine [Pepcid] 20 mg PO BID #10 tablet 10/23/19 Unknown Rx Metoclopramide [Reglan TAB] 10 mg PO QID PRN #30 tab 10/23/19 Unknown Rx Pantoprazole [Protonix TAB] 40 mg PO QDAY #30 tablet 10/23/19 Unknown Rx Ree Root [Ree] 250 mg PO QID PRN #30 capsule 10/25/19 Unknown Rx Potassium Chloride 20 meq PO BID #20 liquid 10/25/19 Unknown Rx Promethazine [Phenergan SUPPOS] 50 mg [place] Q6H PRN #15 supp.rect 10/25/19 Unknown Rx Dicyclomine [Bentyl] 20 mg PO QID #10 tablet 06/10/20 Unknown Rx Ondansetron [Zofran Odt] 4 mg PO Q8HR #10 tab.rapdis 06/10/20 Unknown Rx ED Physical Exam - General Limitations: No Limitations ED Disposition Clinical Impression: Hyperglycemia, ESRD needing dialysis, COVID-19, Metabolic acidosis, Hyperkalemia Disposition: ADMITTED INPATIENT Condition: Serious Referrals: PRIMARY CARE, [Primary Care Provider] - 3-5 Days <SUDHA SOMERS - Last Filed: 12/11/21 18:32> ED General Adult HPI - General PUI?: Yes ED Review of Systems ROS: Stated complaint: DIALYSIS NEEDED Other details as noted in HPI ED Course Vital Signs 12/11/21 15:54 Temperature 98.4 F Pulse Rate 106 H Respiratory 20 Rate Blood Pressure 167/119 [Right] O2 Sat by Pulse 97 Oximetry - Reevaluation(s) Reevaluation #1: 12/11/21 16:51 Patient is seen and examined. Patient cannot recall the name of her ne phrologist. The patient further reports that she was last dialyzed about a week ago. She also reports that she had a positive COVID test over a week ago, and she is still symptomatic. She complains of cough, loss of taste and smell, chest wall pain, shortness of breath. Laboratory studies demonstrate pseudohyponatremia, hyperglycemia, metabolic acidosis, azotemia, uremia, and hyperkalemia. She is not hypoxic at this time. Steroids not indicated. EKG and chest x-ray pending. Hyperkalemia cocktail ordered. Currently awaiting callback from nephrology, Dr. Divina Winslow, nephrology on-call 12/11/21 17:04 Discussed the patient's history, physical, laboratory studies and imaging studies with nephrology on-call, Dr. Divina Winslow, As well as the hospital physician, Dr. Richardson. The aforementioned fios line installer agrees to follow in consultation and arrange for hemodialysis. The aforementioned hospital physician graciously agrees to admit this patient to the medical service. 12/11/21 17:05 ED Medical Decision Making - Lab Data Result diagrams: 12/11/21 16:00 12/11/21 16:00 Vital Signs 12/11/21 15:54 Temperature 98.4 F Pulse Rate 106 H Respiratory 20 Rate Blood Pressure 167/119 [Right] O2 Sat by Pulse 97 Oximetry Lab Results 12/11/21 12/11/21 Range/Units 16:00 16:00 WBC 3.5 L (4.5-11.0) K/mm3 RBC 3.68 (3.65-5.03) M/mm3 Hgb 9.2 L (10.1-14.3) gm/dl Hct 29.1 L (30.3-42.9) % MCV 79 (79-97) fl MCH 25 L (28-32) pg MCHC 32 (30-34) % RDW 19.3 H (13.2-15.2) % Plt Count 283 (140-440) K/mm3 Lymph % (Auto) 17.7 (13.4-35.0) % [place] % (Auto) 11.4 H (0.0-7.3) % Eos % (Auto) 2.2 (0.0-4.3) % Baso % (Auto) 1.1 (0.0-1.8) % Lymph # (Auto) 0.6 L (1.2-5.4) K/mm3 [place] # (Auto) 0.4 (0.0-0.8) K/mm3 Eos # (Auto) 0.1 (0.0-0.4) K/mm3 Baso # (Auto) 0.0 (0.0-0.1) K/mm3 Seg Neutrophils % 67.6 (40.0-70.0) % Seg Neutrophils # 2.3 (1.8-7.7) K/mm3 Sodium 126 L (137-145) mmol/L Chloride 89.1 L (98-107) mmol/L Carbon Dioxide 19 L (22-30) mmol/L Anion Gap 24 mmol/L BUN 80 H (7-17) mg/dL Calcium 7.0 L (8.4-10.2) mg/dL - EKG Data -: EKG Interpreted by Me EKG shows normal: sinus rhythm Rate: normal - EKG Data 12/11/21 17:08 The EKG is interpreted at 17: 00 Sinus rhythm, rate 80 bpm. Normal axis, normal P wave axis. Poor R wave progression. QTc 506 ms. Abnormal EKG. Not a STEMI - Radiology Data Radiology results: pending, report reviewed, image reviewed interpreted by me: 1 view chest x-ray, interpreted by myself, shows pulmonary vascular congestion, right-sided dialysis access catheter, cardiomegaly. No pneumothorax. CHEST 1 VIEW 12/11/2021 4:47 PM INDICATION / CLINICAL INFORMATION: dyspnea, esrd. COMPARISON: None available. FINDINGS: SUPPORT DEVICES: A right internal jugular vein PermCath terminates over the right atrium. HEART / MEDIASTINUM: The cardiac silhouette is prominent with central vascular congestion. LUNGS / PLEURA: No significant pulmonary abnormality. No significant pleural effusion. No pneumothorax. ADDITIONAL FINDINGS: No significant additional findings. IMPRESSION: Prominent cardiac silhouette with central vascular congestion. Volume overload secondary to ESRD is a consideration. Please correlate with the clinical findings. Signer Name: Aaron Moon MD Signed: 12/11/2021 4:00 PM Workstation Name: [id number] Critical Care Time: Yes Critical care time in (mins) excluding proc time.: 35 Critical care attestation.: If time is entered above; I have spent that time in minutes in the direct care of this critically ill patient, excluding procedure time. ED Disposition Is pt being admited?: Yes Does the pt Need Aspirin: No
[2021-12-11 16:35] LABS: Basophils % (Auto) 1.1 % (0.0-1.8); Eosinophils # (Auto) 0.1 K/mm3 (0.0-0.4); Eosinophils % (Auto) 2.2 % (0.0-4.3); Hematocrit 29.1 % (30.3-42.9); Hemoglobin 9.2 gm/dl (10.1-14.3); Lymphocytes # (Auto) 0.6 K/mm3 (1.2-5.4); Lymphocytes % (Auto) 17.7 % (13.4-35.0); Mean Corpuscular HGB Conc 32 % (30-34); Mean Corpuscular Volume 79 fl (79-97); Monocytes # (Auto) 0.4 K/mm3 (0.0-0.8); Monocytes % (Auto) 11.4 % (0.0-7.3); Platelet Count 283 K/mm3 (140-440); Red Blood Count 3.68 M/mm3 (3.65-5.03); Red Cell Distribution Width 19.3 % (13.2-15.2)
[2021-12-11] MEDS ORDERED: SODIUM BICARB 8.4% 50 MEQ/50 ML SYRINGE IV ONE (16:50)
[2021-12-11] MEDS ORDERED: SODIUM POLYSTYRENE 15 GM/60 ML ORAL LIQD PO ONE (16:50)
[2021-12-11] MEDS ORDERED: ALBUTEROL 2.5 MG/3 ML NEBU IH ONE (16:50)
[2021-12-11] MEDS ORDERED: INSULIN REGULAR, HUMAN 100 UNITS/1 ML IV ONE (16:50)
[2021-12-11] MEDS ORDERED: CALCIUM GLUCONATE 1,000 MG in SODIUM CHLORIDE 0.9% 100 ML IV ONE (16:50)
[2021-12-11] MEDS ORDERED: CALC GLUCONATE 1GM/NS 100 ML 1 GM/100 ML BAG IV ONE ×2 (17:00→18:00)
--- NOTE | 2021-12-11 17:04 | History and Physical Report ---
History of Present Illness Chief complaint: They keep giving me the run around and I need dialysis History of present illness: 41 YO Female with ESRD on HD(M,W,F), DM, Nicotine Dependence, Obesity Hypoventilation, Coronavirus Infection diagnosed 1 week ago presents to ED for evaluation. Patient reports "they are giving me the run around and I need dialysis". Patient states that she has experienced shortness of breath, leg edema and is unable to undergo her routine scheduled outpatient dialysis at her side center. Patient transported to [facility] via private vehicle for further care and evaluation of the aforementioned symptoms. The patient was seen and evaluated in the emergency department. All lab and imaging studies reviewed. Patient found to have end-stage renal disease in need of dialysis. Metabolic acidosis, uncontrolled diabetes mellitus, and coronavirus infection. Patient admitted to medical floor due to increased risk of worsening symptoms. Nephrology team consulted in ED for urgent dialysis. Patient denies fever, chills, chest pain, palpitation, productive cough, skin rash, trauma. Prior admission on 01/30/2018 reviewed. All medication listed at time of admission has been reconciled. Advanced care planning conducted in ED. Past History Past Medical History: diabetes, ESRD, other (See HPI) Past Surgical History: Other (Dialysis access) Social history: single, smoking Family history: diabetes, hypertension Medications and Allergies Allergies Allergy/AdvReac Type Severity Reaction Status Date / Time No Known Allergies Allergy Verified 06/10/20 16:10 Home Medications Medication Instructions Recorded Confirmed Last Taken Type [place]-3 Fatty Acids/Fish Oil [Fish 1 each PO DAILY 01/30/18 01/30/18 01/28/18 History Oil] glyBURIDE [Glyburide] 5 mg PO DAILY #30 tablet 01/31/18 Unknown Rx Insulin NPH/Regular [NovoLIN 70/30] 30 unit SUB-Q BIDDIAB #60 units 02/01/18 Unknown Rx lisinopriL [Zestril TAB] 20 mg PO QDAY #30 tablet 02/01/18 Unknown Rx Famotidine [Pepcid] 20 mg PO BID #10 tablet 10/23/19 Unknown Rx Metoclopramide [Reglan TAB] 10 mg PO QID PRN #30 tab 10/23/19 Unknown Rx Pantoprazole [Protonix TAB] 40 mg PO QDAY #30 tablet 10/23/19 Unknown Rx Ree Root [Ree] 250 mg PO QID PRN #30 capsule 10/25/19 Unknown Rx Potassium Chloride 20 meq PO BID #20 liquid 10/25/19 Unknown Rx Promethazine [Phenergan SUPPOS] 50 mg [place] Q6H PRN #15 supp.rect 10/25/19 Unknown Rx Dicyclomine [Bentyl] 20 mg PO QID #10 tablet 06/10/20 Unknown Rx Ondansetron [Zofran Odt] 4 mg PO Q8HR #10 tab.rapdis 06/10/20 Unknown Rx Active Meds: Active Medications Calcium Gluconate 1,000 mg/ (Sodium Chloride) 110 mls @ 660 mls/hr IV ONCE ONE Stop: 12/11/21 16:59 Review of Systems Constitutional: weakness, no weight loss, no fever Ears, nose, mouth and throat: no ear pain, no tinnitis, no decreased hearing, no nose pain, no nasal discharge Breasts: no change in shape, no swelling Cardiovascular: no chest pain, no orthopnea, no palpitations Respiratory: shortness of breath, no cough Gastrointestinal: no abdominal pain, no nausea, no vomiting, no diarrhea Genitourinary Female: no pelvic pain, no flank pain, no dysuria, no urinary frequency, no urgency Rectal: no pain, no incontinence, no bleeding Musculoskeletal: no neck stiffness, no neck pain, no shooting arm pain, no arm numbness/tingling, no low back pain Integumentary: no rash, no pruritis, no redness, no sores, no wounds Neurological: no head injury, no transient paralysis, no paralysis, no tingling, no seizures Psychiatric: no anxiety, no change in sleep habits, no sleep disturbances, no hypersomnia, no change in appetite, no suicidal ideation Endocrine: no cold intolerance, no polyphagia, no excessive thirst, no nocturia Hematologic/Lymphatic: no easy bruising, no lymphedema Allergic/Immunologic: no urticaria, no wheezing, no persistent infections Exam - Constitutional Vitals: Temp Pulse Resp BP Pulse Ox 98.4 F 106 H 20 167/119 97 12/11/21 15:54 12/11/21 15:54 12/11/21 15:54 12/11/21 15:54 12/11/21 15:54 General appearance: Present: mild distress, obese - EENT Eyes: Present: PERRL ENT: hearing intact, clear oral mucosa - Neck Neck: Present: supple, normal ROM - Respiratory Respiratory effort: normal Respiratory: bilateral: CTA - Cardiovascular Heart Sounds: Present: S1 & S2. Absent: rub, click - Extremities Extremities: pulses symmetrical, No edema Peripheral Pulses: within normal limits - Abdominal General gastrointestinal: Present: soft, non-tender, non-distended, normal bowel sounds Female genitourinary: Present: normal - Integumentary Integumentary: Present: clear, warm, dry - Musculoskeletal Musculoskeletal: gait normal, strength equal bilaterally - Psychiatric Psychiatric: appropriate mood/affect, intact judgment & insight - Neurologic Neurologic: CNII-XII intact, moves all extremities Results - Labs CBC & Chem 7: 12/11/21 16:00 12/11/21 16:00 Labs: Abnormal lab results 12/11/21 12/11/21 Range/Units 16:00 16:00 WBC 3.5 L (4.5-11.0) K/mm3 Hgb 9.2 L (10.1-14.3) gm/dl Hct 29.1 L (30.3-42.9) % MCH 25 L (28-32) pg RDW 19.3 H (13.2-15.2) % [place] % (Auto) 11.4 H (0.0-7.3) % Lymph # (Auto) 0.6 L (1.2-5.4) K/mm3 Sodium 126 L (137-145) mmol/L Potassium 6.1 H* (3.6-5.0) mmol/L Chloride 89.1 L (98-107) mmol/L Carbon Dioxide 19 L (22-30) mmol/L BUN 80 H (7-17) mg/dL Creatinine 10.1 H (0.6-1.2) mg/dL Glucose 624 H* (65-100) mg/dL Calcium 7.0 L (8.4-10.2) mg/dL Assessment and Plan - Patient Problems (1) COVID-19 Current Visit: Yes Status: Acute Plan to address problem: Supportive care, pulse oximetry every 4 hours, continue medical management. Supportive care. Vitamin D therapy, vitamin C therapy, zinc therapy. Prophylactic anticoagulation (2) Uncontrolled diabetes mellitus Current Visit: Yes Status: Acute Qualifiers: Glycemic state: with hyperglycemia Plan to address problem: Insulin protocol, Accu-Chek, IV fluid resuscitation therapy, consistent carbohyd rate diet. (3) Nicotine dependence Current Visit: Yes Status: Acute Qualifiers: Nicotine product type: cigarettes Substance use status: in withdrawal Qualified Code(s): F17.213 - Nicotine dependence, cigarettes, with withdrawal Plan to address problem: Smoking cessation counseling, supportive care, behavior change counseling, +15 minutes. (4) ESRD needing dialysis Current Visit: Yes Status: Acute Plan to address problem: Nephrology team consulted in ED, strict I's/O, avoid nephrotoxic agents, dialysis as per renal team. (5) Metabolic acidosis Current Visit: Yes Status: Acute Plan to address problem: BMP, urgent dialysis, repeat BMP in a.m. (6) Obesity (BMI 30.0-34.9) Current Visit: Yes Status: Acute Plan to address problem: Balanced diet, increase physical activity at discharge. (7) DVT prophylaxis Current Visit: Yes Status: Acute Plan to address problem: SCDs bilateral lower extremities while in bed, prophylactic anticoagulation (8) Advance care planning Current Visit: Yes Status: Acute Plan to address problem: Disease education conducted, care plan discussed, diagnosis discussed, prognosis discussed, patient is full code. Patient acknowledges understanding and agreement with care plan, +30 minutes.
--- NOTE | 2021-12-11 17:04 | XRay Report ---
CHEST 1 VIEW 12/11/2021 4:47 PM INDICATION / CLINICAL INFORMATION: dyspnea, esrd. COMPARISON: None available. FINDINGS: SUPPORT DEVICES: A right internal jugular vein PermCath terminates over the right atrium. HEART / MEDIASTINUM: The cardiac silhouette is prominent with central vascular congestion. LUNGS / PLEURA: No significant pulmonary abnormality. No significant pleural effusion. No pneumothora x. ADDITIONAL FINDINGS: No significant additional findings. IMPRESSION: Prominent cardiac silhouette with central vascular congestion. Volume overload secondary to ESRD is a consideration. Please correlate with the clinical findings. Signer Name: Aaron Moon MD Signed: 12/11/2021 5:00 PM Workstation Name: [id number]
[2021-12-11] MEDS ORDERED: ALBUTEROL 2.5 MG/3 ML NEBU IH PRN (17:25)
[2021-12-11] MEDS ORDERED: oxyCODONE /ACETAMINOPHEN 5-325MG TAB PO PRN (17:25)
[2021-12-11] MEDS ORDERED: ACETAMINOPHEN 325 MG TAB PO PRN (17:25)
[2021-12-11] MEDS ORDERED: HYDROmorphone 1 MG/1 ML INJ IV PRN (17:25)
[2021-12-11] MEDS ORDERED: METOCLOPRAMIDE 10 MG TAB PO PRN (17:42)
[2021-12-11] MEDS ORDERED: PROMETHAZINE 50 MG RECT SUPP PR PRN (17:42)
[2021-12-11] MEDS ORDERED: GINGER ROOT 250 MG PO PRN (17:42)
[2021-12-11] MEDS ORDERED: DEXTROSE 50% IN WATER (25GM) 50 ML SYRINGE IV PRN (17:47)
[2021-12-11] MEDS: DICYCLOMINE 20 MG TAB PO SCH ×3 (20:37→23:20)
[2021-12-11] MEDS: INSULIN LISPRO 100 UNIT/ML SUB-Q SCH (20:38)
[2021-12-11] MEDS: ZINC SULFATE 220 MG CAP PO SCH ×2 (22:40→23:20)
[2021-12-11] MEDS: ASCORBIC ACID 500 MG TAB PO SCH ×2 (22:40→23:20)
[2021-12-11] MEDS: HEPARIN 5,000 UNIT/1 ML VIAL SUB-Q SCH (23:20)
[2021-12-11] MEDS: ONDANSETRON 4 MG ODT TAB PO SCH ×2 (23:20→23:57)
[2021-12-11] MEDS ORDERED: guaiFENesin DM 200/20 MG ORAL LIQD 10 ML PO PRN (23:29)
[2021-12-11] MEDS ORDERED: hydrALAZINE 20 MG/1 ML INJ IV ONE (23:45)
[2021-12-11] MEDS: ONDANSETRON 4 MG/2 ML INJ IV PRN (23:53)
[2021-12-12] MEDS: INSULIN LISPRO 100 UNIT/ML SUB-Q SCH ×4 (00:05→19:20)
[2021-12-12] MEDS ORDERED: SODIUM CHLORIDE 0.9% 100 ML IV PRN ×2 (04:00→17:09)
[2021-12-12] MEDS: ONDANSETRON 4 MG ODT TAB PO SCH (06:39)
[2021-12-12 08:53] LABS: Calcium 7.3 mg/dL (8.4-10.2)
--- NOTE | 2021-12-12 09:13 | Consultation ---
History of Present Illness - Reason for Consult Consult date: 12/12/21 end stage renal disease - History of Present Illness This is a 41 year-old woman with ESRD who presents for hyperkalemia, missed Patient usually dialyzes at [facility] but has not dialyzed outpatient for more than 1 week due to COVID-19 status. Per patient, has attempted to get dialysis at her home unit and [facility] (cohort clinic) but has been unable for various reasons. Denies any recent issues with HD, including dizziness, lightheadedness, cramping, chest pain on HD. Currently, patient denies any issues including dyspnea, edema, access issues, nausea, vomiting, headaches. Seen starting on HD. Noted to be COVID-19 positive at [facility] 11/26/2021; of note, did leave AMA on 12/05 without confirmed chair time for HD Past History Past Medical History: diabetes, ESRD, other (See HPI) Past Surgical History: Other (Dialysis access) Social history: single, smoking Family history: diabetes, hypertension Medications and Allergies Allergies Allergy/AdvReac Type Severity Reaction Status Date / Time No Known Allergies Allergy Verified 06/10/20 16:10 Home Medications Medication Instructions Recorded Confirmed Last Taken Type [place]-3 Fatty Acids/Fish Oil [Fish 1 each PO DAILY 01/30/18 12/12/21 01/28/18 History Oil] glyBURIDE [Glyburide] 5 mg PO DAILY #30 tablet 01/31/18 12/12/21 Unknown Rx Insulin NPH/Regular [NovoLIN 70/30] 30 unit SUB-Q BIDDIAB #60 units 02/01/18 12/12/21 Unknown Rx lisinopriL [Zestril TAB] 20 mg PO QDAY #30 tablet 02/01/18 12/12/21 Unknown Rx Famotidine [Pepcid] 20 mg PO BID #10 tablet 10/23/19 12/12/21 Unknown Rx Metoclopramide [Reglan TAB] 10 mg PO QID PRN #30 tab 10/23/19 12/12/21 Unknown Rx Pantoprazole [Protonix TAB] 40 mg PO QDAY #30 tablet 10/23/19 12/12/21 Unknown Rx Ree Root [Ree] 250 mg PO QID PRN #30 capsule 10/25/19 12/12/21 Unknown Rx Potassium Chloride 20 meq PO BID #20 liquid 10/25/19 12/12/21 Unknown Rx Promethazine [Phenergan SUPPOS] 50 mg [place] Q6H PRN #15 supp.rect 10/25/19 12/12/21 Unknown Rx Dicyclomine [Bentyl] 20 mg PO QID #10 tablet 06/10/20 12/12/21 Unknown Rx Ondansetron [Zofran Odt] 4 mg PO Q8HR #10 tab.rapdis 06/10/20 12/12/21 Unknown Rx Furosemide [Lasix TAB] 80 mg PO DAILY 12/12/21 12/12/21 Unknown History Losartan Potassium 100 mg PO DAILY 12/12/21 12/12/21 Unknown History NIFEdipine [Nifedipine ER] 30 mg PO BID 12/12/21 12/12/21 Unknown History carvediloL [Coreg] 12.5 mg PO DAILY 12/12/21 12/12/21 Unknown History cloNIDine HCL [Clonidine HCl] 0.3 mg PO BID 12/12/21 12/12/21 Unknown History hydrALAZINE [Apresoline TAB] 100 mg PO BID 12/12/21 12/12/21 Unknown History labetaloL [Labetalol 200mg TAB] 200 mg PO BID 12/12/21 12/12/21 Unknown History minoxidiL [Loniten] 2.5 mg PO BID 12/12/21 12/12/21 Unknown History Active Meds: Active Medications Acetaminophen (Acetaminophen 325 Mg Tab) 650 mg PO Q4H PRN PRN Reason: Pain MILD(1-3)/Fever >100.5/GREENE Albuterol (Albuterol 2.5 Mg/3 Ml Nebu) 2.5 mg IH Q4HRT PRN PRN Reason: Shortness Of Breath Ascorbic Acid (Ascorbic Acid 500 Mg Tab) 500 mg PO BID [facility] Last Admin: 12/11/21 22:40 Dose: Not Given Cholecalciferol (Cholecalciferol (Vit D3) 1000 Unit (25 Mcg) Tab) 1,000 unit PO QDAY [facility] Dextrose (Dextrose 50% In Water (25gm) 50 Ml Syringe) 50 ml IV Q30MIN PRN; Protocol PRN Reason: Hypoglycemia Dicyclomine HCl (Dicyclomine 20 Mg Tab) 20 mg PO QID [facility] Last Admin: 01/23/22 22:40 Dose: Not Given Famotidine (Famotidine 20 Mg Tab) 20 mg PO BID [facility] Fish Oil ([place]-3 Fatty Acids/Fish Oil 1 Gram Cap) 1,000 mg PO DAILY [facility] Glyburide (Glyburide 5 Mg Tab) 5 mg PO DAILY [facility] Guaifenesin (Guaifenesin Dm 200/20 Mg Oral Liqd 10 Ml) 10 ml PO Q6H PRN PRN Reason: Cough Last Admin: 12/11/21 23:34 Dose: 10 ml Heparin Sodium (Porcine) (Heparin 5,000 Unit/1 Ml Vial) 5,000 unit SUB-Q Q12HR [facility] Last Admin: 12/11/21 23:20 Dose: 5,000 unit Hydralazine HCl (Hydralazine 100 Mg Tab) 100 mg PO BID [facility] Hydromorphone HCl (Hydromorphone 1 Mg/1 Ml Inj) 0.5 mg IV Q23H PRN PRN Reason: Pain , Severe (7-10) Sodium Chloride (Nacl 0.9%) 100 mls @ 999 mls/hr IV ASHLEY PRN PRN Reason: Hypotension Insulin Human Isoph/Insulin Regular (Insulin Nph/Regular 70/30 Inj) 30 unit SUB-Q BIDDIAB [facility] Insulin Human Lispro (Insulin Lispro 100 Unit/Ml) 0 unit SUB-Q Q6HR [facility]; Protocol Last Admin: 12/12/21 06:39 Dose: Not Given Labetalol HCl (Labetalol 200 Mg Tab) 200 mg PO BID [facility] Lisinopril (Lisinopril 20 Mg Tab) 20 mg PO QDAY [facility] Metoclopramide HCl (Metoclopramide 10 Mg Tab) 10 mg PO QID PRN PRN Reason: Nausea Nifedipine (Nifedipine Xl 30 Mg Tab) 30 mg PO BID [facility] Ondansetron HCl (Ondansetron 4 Mg/2 Ml Inj) 4 mg IV Q8H PRN PRN Reason: Nausea And Vomiting Last Admin: 12/11/21 23:53 Dose: 4 mg Ondansetron HCl (Ondansetron 4 Mg Odt Tab) 4 mg PO Q8HR [facility] Last Admin: 12/12/21 06:39 Dose: Not Given Oxycodone/Acetaminophen (Oxycodone /Acetaminophen 5-325mg Tab) 1 tab PO Q16H PRN PRN Reason: Pain, Moderate (4-6) Pantoprazole Sodium (Pantoprazole 40 Mg Tab) 40 mg PO QDAY DENI Prednisone (Prednisone 20 Mg Tab) 20 mg PO QDAY [facility] Stop: 12/14/21 23:59 Promethazine HCl (Promethazine 50 Mg Rect Supp) 50 mg [place] Q6H PRN PRN Reason: Nausea Sodium Chloride (Sodium Chloride 0.9% 10 Ml Flush Syringe) 10 ml IV BID [facility] Last Admin: 12/11/21 23:21 Dose: 10 ml Sodium Chloride (Sodium Chloride 0.9% 10 Ml Flush Syringe) 10 ml IV PRN PRN PRN Reason: LINE FLUSH Zinc Sulfate (Zinc Sulfate 220 Mg Cap) 220 mg PO BID [facility] Last Admin: 12/11/21 22:40 Dose: Not Given Review of Systems All systems: negative (as per HPI) Exam - Vital Signs Vital signs: Vital Signs Temp Pulse Resp BP Pulse Ox 98.4 F 106 H 20 167/119 97 12/11/21 15:54 12/11/21 15:54 12/11/21 15:54 12/11/21 15:54 12/11/21 15:54 - Physical Exam Narrative exam: Constitutional: no acute distress Head: NC/AT Neck: supple Lungs: clear to auscultation CV: RRR, no M/R/G Abdomen: soft, non-tender, bowel sounds present Back: nontender Extremities: no edema, pulses WNL Skin: intact Neuro: no focal deficits, alert and oriented x4 Results - Lab Results 12/11/21 16:00 12/12/21 07:36 Most recent lab results Calcium 7.3 mg/dL (8.4-10.2) L 12/12/21 07:36 Assessment and Plan This is a 41 year old with ESRD who presents with need for HD # ESRD: HD today for hyperkalemia (note DKA/HHS), acidosis, uremia with missed HD. Plan to continue MWF while inpatient - daily labs - renally dose meds - avoid nephrotoxins - renal diet - verbal consent obtained for HD - recommend repeat COVID-19 test, if negative, can return to home clinic. Otherwise will arrange to dialyze at [facility] # Anemia: last hemoglobin 9.2, continue ESAs with HD prn # HTN: UF as tolerated. BP high, continue antihypertensive regimen # Secondary Hyperparathyroidism: continue home binders as needed, vitamin D analogs prn # COVID-19 # DM: per primary
[2021-12-12] MEDS ORDERED: PANTOPRAZOLE 40 MG TAB PO SCH (10:00)
[2021-12-12] MEDS ORDERED: METOCLOPRAMIDE 10 MG TAB PO PRN (10:00)
[2021-12-12] MEDS ORDERED: SODIUM CHLORIDE 0.9% 50 ML IVPB IV PRN (14:26)
[2021-12-12] MEDS: LISINOPRIL 20 MG TAB PO SCH (15:41)
[2021-12-12] MEDS: ASCORBIC ACID 500 MG TAB PO SCH ×2 (15:41→21:11)
[2021-12-12] MEDS: OMEGA-3 FATTY ACIDS/FISH OIL 1 GRAM CAP PO SCH (15:41)
[2021-12-12] MEDS: DICYCLOMINE 20 MG TAB PO SCH ×4 (15:41→21:11)
[2021-12-12] MEDS: ZINC SULFATE 220 MG CAP PO SCH ×2 (15:41→21:05)
[2021-12-12] MEDS: CHOLECALCIFEROL (VIT D3) 1000 UNIT (25 mcg) TAB PO SCH (15:41)
[2021-12-12] MEDS: NIFEdipine XL 30 MG TAB PO SCH ×2 (15:41→21:11)
[2021-12-12] MEDS: FAMOTIDINE 20 MG TAB PO SCH (15:42)
[2021-12-12] MEDS: HEPARIN 5,000 UNIT/1 ML VIAL SUB-Q SCH ×2 (15:42→21:04)
[2021-12-12] MEDS: glyBURIDE 5 MG TAB PO SCH (15:44)
--- NOTE | 2021-12-12 15:51 | Discharge Summary ---
Providers - Providers Date of Admission: 12/11/21 17:25 Date of discharge: 12/12/21 Attending physician: JUMANA MACKEY Primary care physician: JIN GONG MD Hospitalization Condition: Serious Hospital course: _Refused to stay hospital for repeat COVID test Disposition: 30 STILL A PATIENT Exam - Constitutional Vitals: Temp Pulse Resp BP Pulse Ox 98.2 F 99 H 20 197/101 98 12/12/21 13:45 12/12/21 13:45 12/12/21 13:45 12/12/21 13:45 12/12/21 13:45 Plan Follow up with: JIN GONG MD [Primary Care Provider] - 3-5 Days
[2021-12-12] MEDS: hydrALAZINE 100 MG TAB PO SCH ×2 (15:55→21:05)
[2021-12-12] MEDS: predniSONE 20 MG TAB PO SCH (15:55)
[2021-12-12] MEDS: INSULIN NPH/REGULAR 70/30 INJ SUB-Q SCH (19:18)
[2021-12-13] MEDS: INSULIN LISPRO 100 UNIT/ML SUB-Q SCH ×2 (00:31→06:04)
[2021-12-13 01:46] LABS: Calcium 7.7 mg/dL (8.4-10.2)
--- NOTE | 2021-12-13 05:55 | Progress Note ---
Assessment and Plan 41 YO Female with ESRD on HD(M,W,F), DM, Nicotine Dependence, Obesity Hypoventilation, Coronavirus Infection diagnosed at [facility] 11/26/2021 presents to ED for HD. She is unable to get HD chair due to COVID 19 positive status. A/P (1) COVID-19 Current Visit: Yes Status: Acute Plan to address problem: Supportive care, pt asymptomatic, Prophylactic anticoagulation (2) Uncontrolled diabetes mellitus Current Visit: Yes Status: Acute Qualifiers: Glycemic state: with hyperglycemia Plan to address problem: Insulin protocol, Accu-Chek, IV fluid resuscitation therapy, consistent carbohydrate diet. (3) Nicotine dependence Current Visit: Yes Status: Acute Qualifiers: Nicotine product type: cigarettes Substance use status: in withdrawal Qualified Code(s): F17.213 - Nicotine dependence, cigarettes, with withdrawal Plan to address problem: Smoking cessation counseling, supportive care, behavior change counseling, +15 minutes. (4) ESRD needing dialysis Current Visit: Yes Status: Acute Plan to address problem: Nephrology team consulted in ED, strict I's/O, avoid nephrotoxic agents, dialysis as per renal team. (5) Metabolic acidosis Current Visit: Yes Status: Acute Plan to address problem: BMP, urgent dialysis, repeat BMP in a.m. (6) Obesity (BMI 30.0-34.9) Current Visit: Yes Status: Acute Plan to address problem: Balanced diet, increase physical activity at discharge. (7) DVT prophylaxis Current Visit: Yes Status: Acute Plan to address problem: SCDs bilateral lower extremities while in bed, prophylactic anticoagulation (8) Advance care planning Current Visit: Yes Status: Acute Plan to address problem: Disease education conducted, care plan discussed, diagnosis discussed, prognosis discussed, patient is full code. Patient acknowledges understanding and agreement with care plan, +30 minutes. Disposition: s/p HD today, ordered for repeat COVID test, Per renal if negative, can return to home clinic. Otherwise will arrange to dialyze at [facility] Subjective Date of service: 12/12/21 Interval history: Patient seen and examined. Medical records and medication list reviewed. No acute event overnight noted by the RN. Patient denies any chest pain or difficulty breathing. Patient is tolerating diet. Discussed plan of care at bedside with patient. Objective - Constitutional Vitals: Vital Signs - 12hr 12/12/21 12/12/21 12/12/21 20:06 21:05 22:00 Temperature Pulse Rate 99 H Respiratory Rate Blood Pressure 150/71 O2 Sat by Pulse 95 98 Oximetry 12/13/21 05:39 Temperature 99.1 F Pulse Rate 91 H Respiratory 20 Rate Blood Pressure 146/86 O2 Sat by Pulse 99 Oximetry General appearance: Present: no acute distress, obese - EENT Eyes: PERRL, EOM intact ENT: hearing intact, clear oral mucosa Ears: bilateral: normal - Neck Neck: supple, normal ROM - Respiratory Respiratory effort: normal Respiratory: bilateral: CTA - Cardiovascular Rhythm: regular Heart Sounds: Present: S1 & S2. Absent: gallop, rub Extremities: pulses intact, No edema, normal color, Full ROM - Gastrointestinal General gastrointestinal: Present: soft, non-tender, non-distended, normal bowel sounds - Integumentary Integumentary: clear, warm, dry - Musculoskeletal Musculoskeletal: 1, strength equal bilaterally - Neurologic Neurologic: moves all extremities - Psychiatric Psychiatric: memory intact, appropriate mood/affect, intact judgment & insight - Labs CBC & Chem 7: 12/11/21 16:00 12/13/21 00:59 Labs: Abnormal lab results 12/12/21 12/12/21 12/12/21 Range/Units 06:13 07:36 15:42 Sodium (137-145) mmol/L Potassium 5.2 H (3.6-5.0) mmol/L Chloride 95.6 L (98-107) mmol/L Carbon Dioxide 20 L (22-30) mmol/L BUN 78 H (7-17) mg/dL Creatinine 10.5 H (0.6-1.2) mg/dL Glucose 128 H (65-100) mg/dL POC Glucose 116 H 194 H (70-105) mg/dL Calcium 7.3 L (8.4-10.2) mg/dL 12/13/21 12/13/21 12/13/21 Range/Units 00:02 00:59 05:37 Sodium 135 L (137-145) mmol/L Potassium (3.6-5.0) mmol/L Chloride 95.1 L (98-107) mmol/L Carbon Dioxide (22-30) mmol/L BUN 42 H (7-17) mg/dL Creatinine 6.4 H (0.6-1.2) mg/dL Glucose 409 H (65-100) mg/dL POC Glucose 399 H 257 H (70-105) mg/dL Calcium 7.7 L (8.4-10.2) mg/dL
--- NOTE | 2021-12-13 08:55 | Electrocardiograph Report ---
[facility] Test Date: 2021-12-12 Test Time: 07:50:47 Pat Name: FELIX FISHER Department: Room: A364 Gender: F [employer] Officer: VITALIY : 1980 Requested By: JUMANA MACKEY Order Number: [id number] Reading MD: Vince Ruiz Measurements Intervals [place] Rate: 96 P: 46 MT: 195 QRS: 22 QRSD: 84 T: 46 QT: 400 QTc: 506 Interpretive Statements Sinus rhythm nonspecific st-t Compared to ECG 12/11/2021 17:00:42 No significant changes Electronically Signed On 12-13-2021 8:55:00 EST by Vince Ruiz
[2021-12-13] MEDS: INSULIN NPH/REGULAR 70/30 INJ SUB-Q SCH (09:50)
[2021-12-13] MEDS: glyBURIDE 5 MG TAB PO SCH (09:50)
[2021-12-13] MEDS: ASCORBIC ACID 500 MG TAB PO SCH ×2 (09:51→21:34)
[2021-12-13] MEDS: DICYCLOMINE 20 MG TAB PO SCH ×2 (09:51→21:33)
[2021-12-13] MEDS: ZINC SULFATE 220 MG CAP PO SCH ×2 (09:51→21:34)
[2021-12-13] MEDS: OMEGA-3 FATTY ACIDS/FISH OIL 1 GRAM CAP PO SCH (09:51)
[2021-12-13] MEDS: NIFEdipine XL 30 MG TAB PO SCH ×2 (09:51→21:47)
[2021-12-13] MEDS: FAMOTIDINE 20 MG TAB PO SCH (09:52)
[2021-12-13] MEDS: predniSONE 20 MG TAB PO SCH (09:52)
[2021-12-13] MEDS: HEPARIN 5,000 UNIT/1 ML VIAL SUB-Q SCH ×2 (09:56→21:34)
[2021-12-13] MEDS: hydrALAZINE 100 MG TAB PO SCH ×2 (09:57→21:34)
[2021-12-13] MEDS: CHOLECALCIFEROL (VIT D3) 1000 UNIT (25 mcg) TAB PO SCH (09:58)
[2021-12-13] MEDS: LISINOPRIL 20 MG TAB PO SCH (09:58)
--- NOTE | 2021-12-13 12:44 | Progress Note ---
Assessment and Plan This is a 41 year old with ESRD who presents with need for HD # ESRD: HD yesterday for hyperkalemia (note DKA/HHS), acidosis, uremia with missed HD. Plan for additional HD/UF today as she has been noted to have edema even after HD yesterday - daily labs - renally dose meds - avoid nephrotoxins - renal diet - verbal consent obtained for HD - COVID-19+, will need temporary chair at [facility] on discharge # Anemia: last hemoglobin 9.2, continue ESAs with HD prn # HTN: UF as tolerated. BP reasonable continue antihypertensive regimen # Secondary Hyperparathyroidism: continue home binders as needed, vitamin D analogs prn # COVID-19 # DM: per primary Subjective Date of service: 12/13/21 Interval history: Chart, vitals, labs reviewed. Had HD yesterday Objective - Exam Narrative Exam: Examination deferred today due to COVID-19 pandemic, primary team exam reviewed. Patient also seen on direct exam on initial consult - Vital Signs Vital signs: Vital Signs - 12hr 12/13/21 12/13/21 05:39 09:51 Temperature 99.1 F Pulse Rate 91 H 90 Respiratory 20 Rate Blood Pressure 146/86 O2 Sat by Pulse 99 Oximetry - Lab 12/11/21 16:00 12/13/21 00:59 Most recent lab results Calcium 7.7 mg/dL (8.4-10.2) L 12/13/21 00:59 Medications & Allergies - Medications Allergies/Adverse Reactions: Allergies No Known Allergies Allergy (Verified 06/10/20 16:10) Home Medications: Home Medications Medication Instructions Recorded Confirmed Last Taken Type [place]-3 Fatty Acids/Fish Oil [Fish 1 each PO DAILY 01/30/18 12/12/21 01/28/18 History Oil] glyBURIDE [Glyburide] 5 mg PO DAILY #30 tablet 01/31/18 12/12/21 Unknown Rx Insulin NPH/Regular [NovoLIN 70/30] 30 unit SUB-Q BIDDIAB #60 units 02/01/18 12/12/21 Unknown Rx lisinopriL [Zestril TAB] 20 mg PO QDAY #30 tablet 02/01/18 12/12/21 Unknown Rx Famotidine [Pepcid] 20 mg PO BID #10 tablet 10/23/19 12/12/21 Unknown Rx Metoclopramide [Reglan TAB] 10 mg PO QID PRN #30 tab 10/23/19 12/12/21 Unknown Rx Pantoprazole [Protonix TAB] 40 mg PO QDAY #30 tablet 10/23/19 12/12/21 Unknown Rx Ree Root [Ree] 250 mg PO QID PRN #30 capsule 10/25/19 12/12/21 Unknown Rx Potassium Chloride 20 meq PO BID #20 liquid 10/25/19 12/12/21 Unknown Rx Promethazine [Phenergan SUPPOS] 50 mg [place] Q6H PRN #15 supp.rect 10/25/19 12/12/21 Unknown Rx Dicyclomine [Bentyl] 20 mg PO QID #10 tablet 06/10/20 12/12/21 Unknown Rx Ondansetron [Zofran ODT TAB] 4 mg PO Q8HR #10 tab.rapdis 06/10/20 12/12/21 Unknown Rx Furosemide [Lasix TAB] 80 mg PO DAILY 12/12/21 12/12/21 Unknown History Losartan Potassium 100 mg PO DAILY 12/12/21 12/12/21 Unknown History NIFEdipine [Nifedipine ER] 30 mg PO BID 12/12/21 12/12/21 Unknown History cloNIDine HCL [Clonidine HCl] 0.3 mg PO BID 12/12/21 12/12/21 Unknown History hydrALAZINE [Apresoline TAB] 100 mg PO BID 12/12/21 12/12/21 Unknown History labetaloL [Labetalol 200mg TAB] 200 mg PO BID 12/12/21 12/12/21 Unknown History minoxidiL [Loniten] 2.5 mg PO BID 12/12/21 12/12/21 Unknown History Active Medications: Generic Name Dose Route Start Last Admin Trade Name Freq PRN Reason Stop Dose Admin Acetaminophen 650 mg 12/11/21 17:25 Acetaminophen 325 Mg Tab PO Q4H PRN Pain MILD(1-3)/Fever >100.5/GREENE Albuterol 2.5 mg 12/11/21 17:25 Albuterol 2.5 Mg/3 Ml Nebu IH Q4HRT PRN Shortness Of Breath Ascorbic Acid 500 mg 12/11/21 22:00 12/13/21 09:51 Ascorbic Acid 500 Mg Tab PO 500 mg BID DENI Administration Cholecalciferol 1,000 unit 12/12/21 10:00 12/13/21 09:58 Cholecalciferol (Vit D3) 1000 Unit (25 Mcg) Tab PO 1,000 unit QDAY DENI Administration Dextrose 50 ml 12/11/21 17:47 Dextrose 50% In Water (25gm) 50 Ml Syringe IV Q30MIN PRN Hypoglycemia Protocol Dicyclomine HCl 20 mg 12/11/21 18:00 12/13/21 09:51 Dicyclomine 20 Mg Tab PO 20 mg QID DENI Administration Famotidine 20 mg 12/12/21 10:00 12/13/21 09:52 Famotidine 20 Mg Tab PO 20 mg DAILY DENI Administration Fish Oil 1,000 mg 12/12/21 10:00 12/13/21 09:51 [place]-3 Fatty Acids/Fish Oil 1 Gram Cap PO 1,000 mg DAILY DENI Administration Glyburide 5 mg 12/12/21 12:00 12/13/21 09:50 Glyburide 5 Mg Tab PO 5 mg QDDIAB DENI Administration Guaifenesin 10 ml 12/11/21 23:29 12/11/21 23:34 Guaifenesin Dm 200/20 Mg Oral Liqd 10 Ml PO 10 ml Q6H PRN Administration Cough Heparin Sodium (Porcine) 5,000 unit 12/11/21 22:00 12/13/21 09:56 Heparin 5,000 Unit/1 Ml Vial SUB-Q 5,000 unit Q12HR DENI Administration Hydralazine HCl 100 mg 12/12/21 10:00 12/13/21 09:57 Hydralazine 100 Mg Tab PO 100 mg BID DENI Administration Hydromorphone HCl 0.5 mg 12/11/21 17:25 Hydromorphone 1 Mg/1 Ml Inj IV Q23H PRN Pain , Severe (7-10) Sodium Chloride 100 mls @ 999 mls/hr 12/12/21 04:00 Nacl 0.9% IV ASHLEY PRN Hypotension Sodium Chloride 100 mls @ 999 mls/hr 12/12/21 17:09 Nacl 0.9% IV ASHLEY PRN Hypotension Insulin Human Isoph/Insulin Regular 30 unit 12/12/21 17:00 12/13/21 09:50 Insulin Nph/Regular 70/30 Inj SUB-Q 30 unit BIDDIAB DENI Administration Insulin Human Lispro 0 unit 12/11/21 18:00 12/13/21 06:04 Insulin Lispro 100 Unit/Ml SUB-Q 6 unit Q6HR DENI Administration Protocol Labetalol HCl 200 mg 12/12/21 10:00 12/13/21 09:51 Labetalol 200 Mg Tab PO 200 mg BID DENI Administration Lisinopril 20 mg 12/12/21 10:00 12/13/21 09:58 Lisinopril 20 Mg Tab PO 20 mg QDAY DENI Administration Metoclopramide HCl 5 mg 12/12/21 10:00 Metoclopramide 10 Mg Tab PO QID PRN Nausea Nifedipine 30 mg 12/12/21 10:00 12/13/21 09:51 Nifedipine Xl 30 Mg Tab PO 30 mg BID DENI Administration Ondansetron HCl 4 mg 12/11/21 17:25 12/11/21 23:53 Ondansetron 4 Mg/2 Ml Inj IV 4 mg Q8H PRN Administration Nausea And Vomiting Oxycodone/Acetaminophen 1 tab 12/11/21 17:25 Oxycodone /Acetaminophen 5-325mg Tab PO Q16H PRN Pain, Moderate (4-6) Prednisone 20 mg 12/12/21 10:00 12/13/21 09:52 Prednisone 20 Mg Tab PO 12/14/21 23:59 20 mg QDAY DENI Administration Promethazine HCl 50 mg 12/11/21 17:42 Promethazine 50 Mg Rect Supp NJ Q6H PRN Nausea Sodium Chloride 10 ml 12/11/21 22:00 12/13/21 09:57 Sodium Chloride 0.9% 10 Ml Flush Syringe IV 10 ml BID DENI Administration Sodium Chloride 10 ml 12/12/21 14:26 Sodium Chloride 0.9% 50 Ml Ivpb IV PRN PRN FLUSH Zinc Sulfate 220 mg 12/11/21 22:00 12/13/21 09:51 Zinc Sulfate 220 Mg Cap PO 220 mg BID DENI Administration
--- NOTE | 2021-12-13 19:13 | Progress Note ---
Assessment and Plan Assessment and plan: 41 YO Female with ESRD on HD(M,W,F), DM, Nicotine Dependence, Obesity Hypoventilation, Coronavirus Infection diagnosed at [facility] 11/26/2021 presents to ED for HD. She is unable to get HD chair due to COVID 19 positive status[12/13/2021] A/P --COVID-19 test positive 12/13/2021 Current Visit: Yes Status: Acute Supportive care, pt asymptomatic, Prophylactic anticoagulation -- Uncontrolled diabetes mellitus Current Visit: Yes Status: Acute Insulin protocol, Accu-Chek, IV fluid resuscitation therapy, consistent carbohydrate diet. --Nicotine dependence Current Visit: Yes Status: Acute Smoking cessation counseling, supportive care, behavior change counseling, +15 minutes. --ESRD needing dialysis Current Visit: Yes Status: Acute Nephrology team consulted in ED, strict I's/O, avoid nephrotoxic agents, dialysis as per renal team. --Metabolic acidosis Current Visit: Yes Status: Acute BMP, urgent dialysis, repeat BMP in a.m. -- Obesity (BMI 30.0-34.9) Current Visit: Yes Status: Acute Balanced diet, increase physical activity at discharge. -- DVT prophylaxis Current Visit: Yes Status: Acute SCDs bilateral lower extremities while in bed, prophylactic anticoagulation -- Advance care planning Current Visit: Yes Status: Acute Disease education conducted, care plan discussed, diagnosis discussed, prognosis discussed, patient is full code. Patient acknowledges understanding and agreement with care plan, +30 minutes. Disposition: s/p HD today, ordered for repeat COVID test, Per renal if negative, can return to home clinic. Otherwise will arrange to dialyze at [facility] We will closely monitor the patient and adjust the management as needed Discharge planning per case management Possible DC tomorrow if stable History Interval history: I have seen and examined the patient at the bedside this morning Patient's chart and medications reviewed Received hemodialysis today, awaiting COVID-19 test patient is anxious to go home No new complaints Hospitalist Physical - Constitutional Vitals: Temp Pulse Resp BP Pulse Ox 97.7 F 85 18 167/85 94 12/13/21 18:03 12/13/21 18:03 12/13/21 18:03 12/13/21 18:03 12/13/21 18:03 General appearance: Present: no acute distress, obese - EENT Eyes: Present: PERRL, EOM intact - Neck Neck: Present: supple, normal ROM - Respiratory Respiratory effort: normal Respiratory: bilateral: diminished, negative: rales, rhonchi, wheezing - Cardiovascular Rhythm: regular Heart Sounds: Present: S1 & S2 - Extremities Extremities: no ischemia, No edema - Abdominal General gastrointestinal: soft, non-tender, non-distended, normal bowel sounds - Integumentary Integumentary: Present: clear, warm - Psychiatric Psychiatric: appropriate mood/affect, cooperative - Neurologic Neurologic: CNII-XII intact, moves all extremities Results - Labs CBC & Chem 7: 12/11/21 16:00 12/13/21 00:59 Labs: Laboratory Last Values WBC 3.5 K/mm3 (4.5-11.0) L 12/11/21 16:00 RBC 3.68 M/mm3 (3.65-5.03) 12/11/21 16:00 Hgb 9.2 gm/dl (10.1-14.3) L 12/11/21 16:00 Hct 29.1 % (30.3-42.9) L 12/11/21 16:00 MCV 79 fl (79-97) 12/11/21 16:00 MCH 25 pg (28-32) L 12/11/21 16:00 MCHC 32 % (30-34) 12/11/21 16:00 RDW 19.3 % (13.2-15.2) H 12/11/21 16:00 Plt Count 283 K/mm3 (140-440) 12/11/21 16:00 Lymph % (Auto) 17.7 % (13.4-35.0) 12/11/21 16:00 [place] % (Auto) 11.4 % (0.0-7.3) H 12/11/21 16:00 Eos % (Auto) 2.2 % (0.0-4.3) 12/11/21 16:00 Baso % (Auto) 1.1 % (0.0-1.8) 12/11/21 16:00 Lymph # (Auto) 0.6 K/mm3 (1.2-5.4) L 12/11/21 16:00 [place] # (Auto) 0.4 K/mm3 (0.0-0.8) 12/11/21 16:00 Eos # (Auto) 0.1 K/mm3 (0.0-0.4) 12/11/21 16:00 Baso # (Auto) 0.0 K/mm3 (0.0-0.1) 12/11/21 16:00 Seg Neutrophils % 67.6 % (40.0-70.0) 12/11/21 16:00 Seg Neutrophils # 2.3 K/mm3 (1.8-7.7) 12/11/21 16:00 Sodium 135 mmol/L (137-145) L 12/13/21 00:59 Potassium 4.8 mmol/L (3.6-5.0) 12/13/21 00:59 Chloride 95.1 mmol/L (98-107) L 12/13/21 00:59 Carbon Dioxide 23 mmol/L (22-30) 12/13/21 00:59 Anion Gap 22 mmol/L 12/13/21 00:59 BUN 42 mg/dL (7-17) H 12/13/21 00:59 Creatinine 6.4 mg/dL (0.6-1.2) H 12/13/21 00:59 Estimated GFR 9 ml/min 12/13/21 00:59 BUN/Creatinine Ratio 7 % 12/13/21 00:59 Glucose 409 mg/dL (65-100) H 12/13/21 00:59 POC Glucose 102 mg/dL (70-105) 12/13/21 17:11 Calcium 7.7 mg/dL (8.4-10.2) L 12/13/21 00:59 Coronavirus (PCR) Positive (Negative) A 12/13/21 Unknown Sam/IV: Voiding Method Toilet Active Medications - Current Medications Current Medications: Generic Name Dose Route Start Last Admin Trade Name Freq PRN Reason Stop Dose Admin Acetaminophen 650 mg 12/11/21 17:25 Acetaminophen 325 Mg Tab PO Q4H PRN Pain MILD(1-3)/Fever >100.5/GREENE Albuterol 2.5 mg 12/11/21 17:25 Albuterol 2.5 Mg/3 Ml Nebu IH Q4HRT PRN Shortness Of Breath Ascorbic Acid 500 mg 12/11/21 22:00 12/13/21 09:51 Ascorbic Acid 500 Mg Tab PO 500 mg BID DENI Administration Cholecalciferol 1,000 unit 12/12/21 10:00 12/13/21 09:58 Cholecalciferol (Vit D3) 1000 Unit (25 Mcg) Tab PO 1,000 unit QDAY DENI Administration Dextrose 50 ml 12/11/21 17:47 Dextrose 50% In Water (25gm) 50 Ml Syringe IV Q30MIN PRN Hypoglycemia Protocol Dicyclomine HCl 20 mg 12/11/21 18:00 12/13/21 09:51 Dicyclomine 20 Mg Tab PO 20 mg QID DENI Administration Famotidine 20 mg 12/12/21 10:00 12/13/21 09:52 Famotidine 20 Mg Tab PO 20 mg DAILY DENI Administration Fish Oil 1,000 mg 12/12/21 10:00 12/13/21 09:51 [place]-3 Fatty Acids/Fish Oil 1 Gram Cap PO 1,000 mg DAILY DENI Administration Glyburide 5 mg 12/12/21 12:00 12/13/21 09:50 Glyburide 5 Mg Tab PO 5 mg QDDIAB DENI Administration Guaifenesin 10 ml 12/11/21 23:29 12/11/21 23:34 Guaifenesin Dm 200/20 Mg Oral Liqd 10 Ml PO 10 ml Q6H PRN Administration Cough Heparin Sodium (Porcine) 5,000 unit 12/11/21 22:00 12/13/21 09:56 Heparin 5,000 Unit/1 Ml Vial SUB-Q 5,000 unit Q12HR DENI Administration Hydralazine HCl 100 mg 12/12/21 10:00 12/13/21 09:57 Hydralazine 100 Mg Tab PO 100 mg BID DENI Administration Hydromorphone HCl 0.5 mg 12/11/21 17:25 Hydromorphone 1 Mg/1 Ml Inj IV Q23H PRN Pain , Severe (7-10) Sodium Chloride 100 mls @ 999 mls/hr 12/12/21 04:00 Nacl 0.9% IV ASHLEY PRN Hypotension Sodium Chloride 100 mls @ 999 mls/hr 12/12/21 17:09 Nacl 0.9% IV ASHLEY PRN Hypotension Insulin Human Isoph/Insulin Regular 30 unit 12/12/21 17:00 12/13/21 09:50 Insulin Nph/Regular 70/30 Inj SUB-Q 30 unit BIDDIAB DENI Administration Insulin Human Lispro 0 unit 12/11/21 18:00 12/13/21 06:04 Insulin Lispro 100 Unit/Ml SUB-Q 6 unit Q6HR DENI Administration Protocol Labetalol HCl 200 mg 12/12/21 10:00 12/13/21 09:51 Labetalol 200 Mg Tab PO 200 mg BID DENI Administration Lisinopril 20 mg 12/12/21 10:00 12/13/21 09:58 Lisinopril 20 Mg Tab PO 20 mg QDAY DENI Administration Metoclopramide HCl 5 mg 12/12/21 10:00 Metoclopramide 10 Mg Tab PO QID PRN Nausea Nifedipine 30 mg 12/12/21 10:00 12/13/21 09:51 Nifedipine Xl 30 Mg Tab PO 30 mg BID DENI Administration Ondansetron HCl 4 mg 12/11/21 17:25 12/11/21 23:53 Ondansetron 4 Mg/2 Ml Inj IV 4 mg Q8H PRN Administration Nausea And Vomiting Oxycodone/Acetaminophen 1 tab 12/11/21 17:25 Oxycodone /Acetaminophen 5-325mg Tab PO Q16H PRN Pain, Moderate (4-6) Prednisone 20 mg 12/12/21 10:00 12/13/21 09:52 Prednisone 20 Mg Tab PO 12/14/21 23:59 20 mg QDAY DENI Administration Promethazine HCl 50 mg 12/11/21 17:42 Promethazine 50 Mg Rect Supp [place] Q6H PRN Nausea Sodium Chloride 10 ml 12/11/21 22:00 12/13/21 09:57 Sodium Chloride 0.9% 10 Ml Flush Syringe IV 10 ml BID DENI Administration Sodium Chloride 10 ml 12/12/21 14:26 Sodium Chloride 0.9% 50 Ml Ivpb IV PRN PRN FLUSH Zinc Sulfate 220 mg 12/11/21 22:00 12/13/21 09:51 Zinc Sulfate 220 Mg Cap PO 220 mg BID DENI Administration
[2021-12-13 20:04] LABS: Hepatitis B Surface Antigen Non-Reactive (Negative); Hepatitis C Virus Antibody Non-Reactive (NonReactive)
[2021-12-14] MEDS: INSULIN LISPRO 100 UNIT/ML SUB-Q SCH ×3 (00:30→12:42)
--- NOTE | 2021-12-14 08:12 | Discharge Summary ---
Providers - Providers Date of Admission: 12/11/21 17:25 Date of discharge: 12/14/21 Attending physician: REJI QUICK Primary care physician: MELTER OPERATOR Hospitalization Condition: Fair Hospital course: --COVID-19 test positive 12/13/2021 Current Visit: Yes Status: Acute Supportive care, pt asymptomatic, Prophylactic anticoagulation -- Uncontrolled diabetes mellitus Current Visit: Yes Status: Acute Insulin protocol, Accu-Chek, IV fluid resuscitation therapy, consistent carbohydrate diet. --Nicotine dependence Current Visit: Yes Status: Acute Smoking cessation counseling, supportive care, behavior change counseling, +15 minutes. --ESRD needing dialysis Current Visit: Yes Status: Acute Nephrology team consulted in ED, strict I's/O, avoid nephrotoxic agents, dialysis as per renal team. --Metabolic acidosis Current Visit: Yes Status: Acute BMP, urgent dialysis, repeat BMP in a.m. -- Obesity (BMI 30.0-34.9) Current Visit: Yes Status: Acute Balanced diet, increase physical activity at discharge. Disposition: 01 HOME / SELF CARE / HOMELESS Final Discharge Diagnosis (Prints w/discharge instructions): COVID-19 infection. Uncontrolled diabetes mellitus. Ongoing tobacco use. End-stage renal disease on hemodialysis. Metabolic acidosis. Obesity BMI 31.7 Time spent for discharge: 35 min Core Measure Documentation - Palliative Care Palliative Care/ Comfort Measures: Not Applicable - Core Measures Any of the following diagnoses?: none Exam - Constitutional Vitals: Temp Pulse Resp BP Pulse Ox 98.6 F 108 H 20 176/92 99 12/13/21 22:38 12/13/21 22:38 12/13/21 22:38 12/13/21 22:38 12/13/21 22:38 General appearance: Present: no acute distress, well-nourished - EENT Eyes: Present: PERRL, EOM intact - Neck Neck: Present: supple, normal ROM - Respiratory Respiratory effort: normal Respiratory: bilateral: diminished, negative: rales, rhonchi, wheezing - Cardiovascular Rhythm: regular Heart Sounds: Present: S1 & S2 - Extremities Extremities: no ischemia, No edema - Abdominal General gastrointestinal: Present: soft, non-tender, non-distended, normal bowel sounds - Integumentary Integumentary: Present: clear, warm - Musculoskeletal Musculoskeletal: strength equal bilaterally - Psychiatric Psychiatric: appropriate mood/affect, cooperative - Neurologic Neurologic: moves all extremities Plan Activity: no restrictions Diet: renal Additional Instructions: Follow renal, hemodialysis per schedule. Advised to continue COVID-19 isolation precautions and protocols per CDC guidelines, as explained by the discharge nurse. If you have worsening symptoms contact MD or go to the nearest emergency room as needed Follow up with: PRIMARY CAREMD [Primary Care Provider] - 3-5 Days TY GRADY MD [Staff Physician] - 7 Days Prescriptions: Ascorbic Acid [Vitamin C] 500 mg PO BID #30 tablet Cholecalciferol Vit D3 [Vitamin D3 1,000 UNIT TAB] 1,000 unit PO QDAY #15 tablet Zinc Sulfate 220 mg PO BID #30 capsule
--- NOTE | 2021-12-14 08:20 | Event Note ---
Date: 12/14/21 For unknown reasons patient did not receive long-acting insulin Novolin 70/30 last night And patient's blood sugars are 300s this morning. Patient's nurse is not aware why last night's dose was held.
[2021-12-14] MEDS: INSULIN NPH/REGULAR 70/30 INJ SUB-Q SCH (08:33)
[2021-12-14] MEDS: FAMOTIDINE 20 MG TAB PO SCH (09:29)
[2021-12-14] MEDS: OMEGA-3 FATTY ACIDS/FISH OIL 1 GRAM CAP PO SCH (09:29)
[2021-12-14] MEDS: ZINC SULFATE 220 MG CAP PO SCH (09:29)
[2021-12-14] MEDS: CHOLECALCIFEROL (VIT D3) 1000 UNIT (25 mcg) TAB PO SCH (09:29)
[2021-12-14] MEDS: glyBURIDE 5 MG TAB PO SCH (09:29)
[2021-12-14] MEDS: ASCORBIC ACID 500 MG TAB PO SCH (09:29)
[2021-12-14] MEDS: NIFEdipine XL 30 MG TAB PO SCH (09:29)
[2021-12-14] MEDS: predniSONE 20 MG TAB PO SCH (09:29)
[2021-12-14] MEDS: DICYCLOMINE 20 MG TAB PO SCH (09:30)
[2021-12-14] MEDS: HEPARIN 5,000 UNIT/1 ML VIAL SUB-Q SCH (09:42)
--- NOTE | 2021-12-14 10:50 | Progress Note ---
Assessment and Plan This is a 41 year old with ESRD who presents with need for HD # ESRD: HD 12/12 for hyperkalemia (note DKA/HHS), acidosis, uremia with missed HD. Had additional HD/UF yesterday as she has been noted to have edema even after HD yesterday; resume HD MWF per usual schedule today - daily labs - renally dose meds - avoid nephrotoxins - renal diet - verbal consent obtained for HD - COVID-19+, will need temporary chair at [facility] on discharge, note that chair time is confirmed # Anemia: last hemoglobin 9.2, continue ESAs with HD prn # HTN: UF as tolerated. BP high this AM, continue antihypertensive regimen # Secondary Hyperparathyroidism: continue home binders as needed, vitamin D analogs prn # COVID-19 # DM: per primary Subjective Date of service: 12/14/21 Interval history: Chart, vitals, labs reviewed. Had HD yesterday for extra treatment. Note high blood sugars this AM Objective - Exam Narrative Exam: Examination deferred today due to COVID-19 pandemic, primary team exam reviewed. Patient also seen on direct exam on initial consult - Vital Signs Vital signs: Vital Signs - 12hr 12/14/21 12/14/21 08:46 10:35 O2 Sat by Pulse 97 97 Oximetry - Lab 12/11/21 16:00 12/13/21 00:59 Most recent lab results Calcium 7.7 mg/dL (8.4-10.2) L 12/13/21 00:59 Medications & Allergies - Medications Allergies/Adverse Reactions: Allergies No Known Allergies Allergy (Verified 12/14/21 10:37) Home Medications: Home Medications Medication Instructions Recorded Confirmed Last Taken Type lisinopriL [Zestril TAB] 20 mg PO QDAY #30 tablet 02/01/18 12/12/21 Unknown Rx Ondansetron [Zofran ODT TAB] 4 mg PO Q8HR #10 tab.rapdis 06/10/20 12/14/21 2 Weeks Ago Rx ~11/30/21 Furosemide [Lasix TAB] 80 mg PO DAILY 12/12/21 12/12/21 Unknown History Losartan Potassium 100 mg PO DAILY 12/12/21 12/12/21 Unknown History NIFEdipine [Nifedipine ER] 30 mg PO BID 12/12/21 12/12/21 Unknown History cloNIDine HCL [Clonidine HCl] 0.3 mg PO BID 12/12/21 12/12/21 Unknown History hydrALAZINE [Apresoline TAB] 100 mg PO BID 12/12/21 12/12/21 Unknown History labetaloL [Labetalol 200mg TAB] 200 mg PO BID 12/12/21 12/12/21 Unknown History minoxidiL [Loniten] 2.5 mg PO BID 12/12/21 12/12/21 Unknown History Active Medications: Generic Name Dose Route Start Last Admin Trade Name Freq PRN Reason Stop Dose Admin Acetaminophen 650 mg 12/11/21 17:25 Acetaminophen 325 Mg Tab PO Q4H PRN Pain MILD(1-3)/Fever >100.5/GREENE Albuterol 2.5 mg 12/11/21 17:25 Albuterol 2.5 Mg/3 Ml Nebu IH Q4HRT PRN Shortness Of Breath Ascorbic Acid 500 mg 12/11/21 22:00 12/14/21 09:29 Ascorbic Acid 500 Mg Tab PO 500 mg BID DENI Administration Cholecalciferol 1,000 unit 12/12/21 10:00 12/14/21 09:29 Cholecalciferol (Vit D3) 1000 Unit (25 Mcg) Tab PO 1,000 unit QDAY DENI Administration Dextrose 50 ml 12/11/21 17:47 Dextrose 50% In Water (25gm) 50 Ml Syringe IV Q30MIN PRN Hypoglycemia Protocol Dicyclomine HCl 20 mg 12/11/21 18:00 12/14/21 09:30 Dicyclomine 20 Mg Tab PO 20 mg QID DENI Administration Famotidine 20 mg 12/12/21 10:00 12/14/21 09:29 Famotidine 20 Mg Tab PO 20 mg DAILY DENI Administration Fish Oil 1,000 mg 12/12/21 10:00 12/14/21 09:29 [place]-3 Fatty Acids/Fish Oil 1 Gram Cap PO 1,000 mg DAILY DENI Administration Glyburide 5 mg 12/12/21 12:00 12/14/21 09:29 Glyburide 5 Mg Tab PO 5 mg QDDIAB DENI Administration Guaifenesin 10 ml 12/11/21 23:29 12/11/21 23:34 Guaifenesin Dm 200/20 Mg Oral Liqd 10 Ml PO 10 ml Q6H PRN Administration Cough Heparin Sodium (Porcine) 5,000 unit 12/11/21 22:00 12/14/21 09:42 Heparin 5,000 Unit/1 Ml Vial SUB-Q 5,000 unit Q12HR DENI Administration Hydralazine HCl 100 mg 12/12/21 10:00 12/13/21 21:34 Hydralazine 100 Mg Tab PO 100 mg BID DENI Administration Hydromorphone HCl 0.5 mg 12/11/21 17:25 Hydromorphone 1 Mg/1 Ml Inj IV Q23H PRN Pain , Severe (7-10) Sodium Chloride 100 mls @ 999 mls/hr 12/12/21 04:00 Nacl 0.9% IV ASHLEY PRN Hypotension Sodium Chloride 100 mls @ 999 mls/hr 12/12/21 17:09 Nacl 0.9% IV ASHLEY PRN Hypotension Insulin Human Isoph/Insulin Regular 30 unit 12/12/21 17:00 12/14/21 08:33 Insulin Nph/Regular 70/30 Inj SUB-Q 30 unit BIDDIAB DENI Administration Insulin Human Lispro 0 unit 12/11/21 18:00 12/14/21 06:20 Insulin Lispro 100 Unit/Ml SUB-Q 10 unit Q6HR DENI Administration Protocol Labetalol HCl 200 mg 12/12/21 10:00 12/13/21 21:52 Labetalol 200 Mg Tab PO 200 mg BID DENI Administration Lisinopril 20 mg 12/12/21 10:00 12/13/21 09:58 Lisinopril 20 Mg Tab PO 20 mg QDAY DENI Administration Metoclopramide HCl 5 mg 12/12/21 10:00 Metoclopramide 10 Mg Tab PO QID PRN Nausea Nifedipine 30 mg 12/12/21 10:00 12/14/21 09:29 Nifedipine Xl 30 Mg Tab PO 30 mg BID DENI Administration Ondansetron HCl 4 mg 12/11/21 17:25 12/11/21 23:53 Ondansetron 4 Mg/2 Ml Inj IV 4 mg Q8H PRN Administration Nausea And Vomiting Oxycodone/Acetaminophen 1 tab 12/11/21 17:25 Oxycodone /Acetaminophen 5-325mg Tab PO Q16H PRN Pain, Moderate (4-6) Prednisone 20 mg 12/12/21 10:00 12/14/21 09:29 Prednisone 20 Mg Tab PO 12/14/21 23:59 20 mg QDAY DENI Administration Promethazine HCl 50 mg 12/11/21 17:42 Promethazine 50 Mg Rect Supp SC Q6H PRN Nausea Sodium Chloride 10 ml 12/11/21 22:00 12/14/21 09:43 Sodium Chloride 0.9% 10 Ml Flush Syringe IV 10 ml BID DENI Administration Sodium Chloride 10 ml 12/12/21 14:26 Sodium Chloride 0.9% 50 Ml Ivpb IV PRN PRN FLUSH Zinc Sulfate 220 mg 12/11/21 22:00 12/14/21 09:29 Zinc Sulfate 220 Mg Cap PO 220 mg BID DENI Administration
[2021-12-14] MEDS: ONDANSETRON 4 MG/2 ML INJ IV PRN (10:52)
[2021-12-14] MEDS: hydrALAZINE 100 MG TAB PO SCH (10:56)
[2021-12-14] MEDS: LISINOPRIL 20 MG TAB PO SCH (10:58)
[2021-12-14 13:16] VITALS: BP 168/89
--- NOTE | 2021-12-15 13:32 | Electrocardiograph Report ---
[facility] Test Date: 2021-12-11 Test Time: 17:00:42 Pat Name: FELIX FISHER Department: Room: A364 Gender: F Manager Trading: PARI : 1980 Requested By: SUDHA SOMERS Order Number: [id number] Reading MD: Anthony Hardy Measurements Intervals [place] Rate: 80 P: 65 NC: 189 QRS: 31 QRSD: 86 T: 46 QT: 438 QTc: 506 Interpretive Statements Sinus rhythm Low voltage, extremity leads Anteroseptal infarct, old No previous ECG available for comparison Electronically Signed On 12-15-2021 13:32:23 EST by Anthony Hardy
== END 2021-12-14 14:50 | disposition home or self-care (01) | DRG 640 ==
LOC: ED 14:28 → 3A 17:25
PROVIDERS: ADMIT Internal Medicine; ATTEND Internal Medicine
PROC: 5A1D70Z Performance of Urinary Filtration, Intermittent, Less than 6 Hours Per Day (ICD-10-PCS; principal; 2021-12-12)
PROC: 5A1D70Z Performance of Urinary Filtration, Intermittent, Less than 6 Hours Per Day (ICD-10-PCS; 2021-12-13)
DX: E87.5 Hyperkalemia (principal); U07.1 COVID-19; N18.6 End stage renal disease; I12.0 Hypertensive chronic kidney disease with stage 5 chronic kidney disease or end stage renal disease; E66.2 Morbid (severe) obesity with alveolar hypoventilation; F17.213 Nicotine dependence, cigarettes, with withdrawal; N25.81 Secondary hyperparathyroidism of renal origin; E87.2 Acidosis; Z79.899 Other long term (current) drug therapy; Z79.4 Long term (current) use of insulin; Z68.31 Body mass index [BMI] 31.0-31.9, adult; Z83.3 Family history of diabetes mellitus; Z82.49 Family history of ischemic heart disease and other diseases of the circulatory system; D64.9 Anemia, unspecified; Z99.2 Dependence on renal dialysis
CPT/HCPCS: 36415; 71045; 80048; 80074; 82962; 84132; 85025; 93005; 93010; G0378; J3490; Q0177; Q9967; J0360; J0610; J1644; J1815; J2405; Q0162; U0003